=== PATIENT | female | born 1930 | race Caucasian/White ===

== ENCOUNTER 2018-07-19 06:33 | Day surgery (SDC) | payer OTHER, BC ==
[2018-07-18 18:24] VITALS: BMI 22.3
[2018-07-19] MEDS ORDERED: SODIUM CHLORIDE 0.9% P/F 10 ML VIAL IJ ONE (07:18)
[2018-07-19] MEDS ORDERED: ceFAZolin SODIUM 1 GM VIAL ONE (07:18)
[2018-07-19] MEDS ORDERED: ONDANSETRON 4 MG/2 ML VIAL ONE (07:18)
[2018-07-19] MEDS ORDERED: SUCCINYLCHOLINE CHLORIDE 200 MG/10 ML VIAL ONE (07:19)
[2018-07-19] MEDS ORDERED: PROPOFOL 20 ML ONE (07:19)
[2018-07-19] MEDS ORDERED: LIDOCAINE HCL/PF 2% SDV 5ML VIAL ONE (07:33)
[2018-07-19] MEDS ORDERED: BUPIVACAINE HCL/PF 0.5% (5MG/ML) 10 ML VIAL ONE (07:37)
[2018-07-19] MEDS ORDERED: LIDOCAINE HCL 1%, 10 MG/ML (20ML VIAL) ONE (07:38)
[2018-07-19] MEDS ORDERED: ceFAZolin SODIUM 1 GM VIAL IVPB ONE (08:29)
--- NOTE | 2018-07-19 08:30 | HP ---
[facility]ellite [facility] - Chief Complaint Chief Complaint: right hand pain, wrist , numbness, tingling History of Present Illness: right CTS, Dequervain's History Source: Patient Limitations to Obtaining History: No Limitations - Past Medical History Allergies/Adverse Reactions: Allergies Allergy/AdvReac Type Severity Reaction Status Date / Time verapamil HCl [From Calan] Allergy Intermediate Verified 07/19/18 07:21 - Current Medications Current Medications: Home Medications Medication Instructions Recorded Atorvastatin Calcium [Lipitor] 20 mg PO DAILY 03/10/12 Bisoprolol Fumarate/Hctz [Ziac 1 each PO DAILY 08/31/12 5-6.25 mg Tablet] Hydrocodone/Acetaminophen 1 - 2 tab PO TID PRN #20 tablet 07/19/18 [Hydrocodone-Acetamin 5-325 mg] [facility] 6 Satellite Physical Exam - Physical Examination Vital Signs: Vital Signs Period Temp Pulse Resp BP Sys/Jama Pulse Ox Last 24 Hr 98.0 F 62 20 180/74 100 General Appearance: Well Nourished ENT: Clear Lung: Clear to auscultation Heart: Regular rate & rhythm Breasts: Soft Abdomen: Soft Extremities: No edema Satellite Impression/Plan - Impression/Plan Impression: right CTS, Dequervain's Operative Procedure: right CTR, Dequervain's release Date to be Performed: 07/19/18
[2018-07-19] MEDS ORDERED: BUPIVACAINE HCL/PF 0.5% (5MG/ML) 10 ML VIAL IJ ONE (08:41)
[2018-07-19] MEDS ORDERED: LIDOCAINE HCL 1%, 10 MG/ML (50 mL VIAL) IJ ONE (08:41)
--- NOTE | 2018-07-19 09:28 | OP ---
Operative Note - Note: Operative Date: 07/19/18 Pre-Operative Diagnosis: right CTS, Dequervain's Operation: right Dequervain's release, CTR, tendon sheath excision, tenosynovectomy Post-Operative Diagnosis: Same as Pre-op Surgeon: Ricardo Webber Anesthesiologist/WELLNESS GUIDE: Dread Hammer Anesthesia: Local, MAC Specimens Removed: tenosynovium, tendon sheath Estimated Blood Loss (mls): 0 Drains, Volume Out (mls): 0 Blood Volume Replaced (mls): 0 Fluid Volume Replaced (mls): 500 Operative Report Dictated: Yes
[2018-07-19 11:26] VITALS: TEMP 98
--- NOTE | 2018-07-19 11:50 | SPEC ---
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 POSTOPERATIVE DIAGNOSIS: Right de Quervains and right carpal tunnel syndrome. PROCEDURE: Right de Quervains release and tendon sheath excision, right carpal tunnel release and tenosynovectomy. SURGEON: Marcelo Escalante M.D. ASSISTANTS: None. METAL MOLDER: Dread Hammer CRNA ANESTHESIA: MAC anesthesia with local injection of 15 mL of 0.5% Marcaine and 1% Lidocaine mix. DRAINS: None. COMPLICATIONS: None. SPECIMEN: Right wrist tendon sheath and tenosynovium. BLOOD LOSS: None. BLOOD GIVEN: None. FLUID REPLACEMENT: PlasmaLyte, 500 mL. INDICATIONS: This patient is an 88-year-old female with a preoperative diagnosis of severe right carpal tunnel syndrome and de Quervains tenosynovitis. After understanding the potential risks, complications, alternatives and benefits of surgery versus nonsurgical treatment, the patient elected to undergo this procedure. DESCRIPTION OF PROCEDURE: The patient was brought to the operating room, peripheral IV placed and intravenous sedation was given. One gram of intravenous Ancef was given. MAC anesthesia was induced. A tourniquet was applied to the right upper arm and the right upper extremity was prepped and draped in sterile fashion. The entire case was done under 3.8 loupe magnification. A marking pen was utilized to moises out a longitudinal incision in an already existing skin crease. Twenty mL of 0.5% Marcaine mixed with 1% Lidocaine was injected in and around the surgical incision. The right upper extremity was elevated, exsanguinated with an Esmarch bandage and the tourniquet inflated to 250 mmHg. A No. 15 scalpel blade was utilized to cut down through the skin. Subcutaneous hemostasis was achieved with the bipolar cautery. Dissection was done through the superficial palmar fascia. Self-retaining retractors were placed into the wound. Under direct visualization, the transverse carpal ligament was transected with a No. 15 scalpel blade, exposing the median nerve and the contents of the carpal tunnel. The distal and proximal extents of the release were completed with a Littler scissor and checked with irrigation and my small finger. They were seen to be complete. Limited dissection was done on the radial side of the median nerve and more extensive dissection was done on the ulnar side of the median nerve. The patients nerve was seen to be quite compressed by epineurium and therefore a limited epineurotomy was performed. A Ragnell retractor was used to gently retract the median nerve in a radial direction. The patient had a lot of tenosynovitis and therefore a tenosynovectomy was performed off all 9 flexor tendons. This was passed off the field as tenosynovium right wrist. The floor of the carpal tunnel was checked. There were no abnormal masses or ganglion cysts. The area was copiously irrigated and washed out and closure begun. Undyed 4-0 Vicryl was used to close the deep dermal layer. Final skin reapproximation was done with horizontal mattress 4-0 nylon sutures. The area was then washed and dried, covered with Xeroform, 4x4s, fluffs between the fingers, Webril and a 4-inch plaster roll was utilized to make a volar splint, which was then wrapped with Nate and Coban. For de Quervains release, the entire case was done under 3.8 loop magnification. The right upper extremity was prepped and draped in a sterile fashion. A longitudinal incision was marked out with a marking pen. A mix of 10 mL of 0.5% Marcaine, 1% Lidocaine were injected in and around the surgical area. The right upper extremity was then elevated, exsanguinated with an Esmarch bandage and the tourniquet inflated to 250 mmHg. A No. 15 scalpel blade was utilized to make a longitudinal incision. Subcutaneous hemostasis was achieved with a bipolar cautery. Dissection was done with a Littler scissors down to the first dorsal wrist compartment. Great care was taken to directly visualize and preserve all crossing sensory branches of the sensory nerve. Under direct visualization, the first dorsal wrist compartment was visualized and it was freed up from some adhesions with a [place] elevator. Next, a fresh No. 15 scalpel blade was utilized to open up the first dorsal wrist compartment, starting proximally and going distally both with the No. 15 scalpel blade and also with a Littler scissors. The anatomy was seen to have multiple slips of the abductor pollicis longus and the extensor pollicis brevis was in its own tendon tunnel. This was also released and the wall between the two excised. The roof of the tunnel was excised. This was all passed off the field as specimen. The volar lip of the first dorsal wrist compartment was preserved to prevent volar subluxation. The release was completed both distally and proximally in both compartments. I was able to bring out all slips through the wound with a Ragnell retractor and there were no obvious points of compression. The area was copiously irrigated and washed out, again explored and I didn't see any other abnormal tissue and therefore closure was begun. Undyed 4-0 Vicryl was used to close the deep dermal layer. Final skin reapproximation was done with a running subcuticular 4-0 Biosyn stitch. The area was then washed and dried, covered with Steri-Strips, 4 x 4's, fluffs between the fingers, Webril and Coban used to make a thumb spica Coban splint. The tourniquet was taken down after a total tourniquet time of 37 minutes. There were no complications during the case. The patient tolerated the procedure quite well and was brought to ambulatory recovery room in stable condition. MARCELO ESCALANTE M.D. [id number]
[2018-07-19] MEDS ORDERED: oxyCODONE HCL 5 MG TABLET PO PRN (14:46)
[2018-07-19] MEDS ORDERED: ONDANSETRON 4 MG/2 ML VIAL IVPUSH PRN (14:46)
[2018-07-19] MEDS ORDERED: LACTATED RINGERS SOLUTION 1,000 ML IV SCH (15:00)
[2018-07-19 15:02] VITALS: BP 160/80; PULSE 60
--- NOTE | 2018-07-21 13:43 | PATH ---
Surgical Pathology Report Patient Name: CRESENCIO CANALES [facility]. Rec. #: [id number] /Age/Gender: 1930 (Age: 88) / F Account: [id number] Location: [facility] SURGICAL Taken: 07/19/2018 Received: 07/19/2018 Reported: 07/21/2018 Physicians: Ricardo Webber M.D. Specimen(s) Received A: RIGHT HAND TENOSYNOVIUM B: TENDON SHEATH RIGHT WRIST Clinical History Right carpal tunnel Final Diagnosis A. RIGHT HAND TENOSYNOVIUM, EXCISION: TENOSYNOVIAL TISSUE WITH FIBROSIS AND DEGENERATIVE CHANGE. B. TENDON SHEATH RIGHT WRIST, EXCISION: FIBROCONNECTIVE TISSUE WITH FIBROSIS AND DEGENERATIVE CHANGE. Electronically Signed Sonia Portillo M.D. Gross Description A. Received in formalin labeled "right hand tenosynovium," is a 2.7 x 2.0 x 0.3 cm aggregate of mcconnell-yellow portions of soft tissue, consistent with tenosynovium. The specimen is submitted in toto in one cassette. B. Received in formalin labeled "tendon sheath excision right wrist," is a 1.5 x 0.8 x 0.2 cm aggregate of mcconnell-yellow portions of soft tissue, possibly consistent with tendon sheath. The specimen is submitted in toto in one cassette. /07/19/201807/19/2018
== END 2018-07-19 14:15 | disposition home or self-care (01) ==
LOC: JASU-SURG 06:33
PROVIDERS: ATTEND Orthopaedic Surgery
PROC: 0LB50ZZ Excision of Right Lower Arm and Wrist Tendon, Open Approach (ICD-10-PCS; 2018-07-19)
PROC: 0LN50ZZ Release Right Lower Arm and Wrist Tendon, Open Approach (ICD-10-PCS; principal; 2018-07-19 08:22)
PROC: 01N50ZZ Release Median Nerve, Open Approach (ICD-10-PCS; 2018-07-19 08:22)
DX: G56.01 Carpal tunnel syndrome, right upper limb (principal); M65.4 Radial styloid tenosynovitis [de Quervain]
CPT/HCPCS: 88304-TC; 94760

== ENCOUNTER 2018-10-22 12:06 | Inpatient (IN) | payer OTHER, BC ==
--- NOTE | 2018-10-22 12:27 | PDOC ---
History of Present Illness - General Chief Complaint: Pain Stated Complaint: ABD PAIN, BLOOD IN STOOL Time Seen by Provider: 10/22/18 12:12 History Source: Patient Exam Limitations: No Limitations - History of Present Illness Travel History: No Initial Comments: 10/22/18 12:43 88-year-old female history of hypertension, hyperlipidemia, arthritis prsents with abd pain and nausea. Pt nots abd pain is epigastric, has been going on for ~1-2 months, but has been more persistent recently. She went to Dr. Villanueva office last week- had some blood tests and stool guaiac - was found to be anemic and with guaiac + stool so was referred to dr. blum. pt was started on iron and protonix. Pt notes her stool is fairly well formed but black in color , denies any tarry stool. Pt does endorse feeling weaker than usual and occasional sob. pt also endorses feeling nauesus. pain is not canged with food intake. denies any cp, cogh PMD Past History - Past Medical History Allergies/Adverse Reactions: Allergies Allergy/AdvReac Type Severity Reaction Status Date / Time verapamil HCl [From Calan] Allergy Intermediate Verified 10/22/18 12:23 Home Medications: Ambulatory Orders Atorvastatin Calcium [Lipitor] 20 mg PO DAILY 03/10/12 Carbidopa/Levodopa 25/100 [Sinemet 25/100 -] 1 each PO DAILY 10/22/18 Ferrous Sulfate [Iron] 325 mg PO TID 10/22/18 Mirabegron [Myrbetriq] 25 mg PO DAILY 10/22/18 Nebivolol HCl [Bystolic] 10 mg PO DAILY 10/22/18 Pantoprazole Sodium [Protonix] 40 mg PO BID 10/22/18 Anemia: No Asthma: No Cancer: No Cardiac Disorders: No CVA: No COPD: No CHF: No Dementia: No Diabetes: No GI Disorders: No Disorders: No HTN: Yes Hypercholesterolemia: Yes Liver Disease: No Seizures: No Thyroid Disease: No - Surgical History Abdominal Surgery: No Appendectomy: No Cardiac Surgery: No Cholecystectomy: No Lung Surgery: No Neurologic Surgery: No Orthopedic Surgery: No - Suicide/Smoking/Psychosocial Hx Smoking Status: No Smoking History: Never smoked Number of Cigarettes Smoked Daily: 0 Hx Alcohol Use: No Drug/Substance Use Hx: No Substance Use Type: None Hx Substance Use Treatment: No Review of Systems - Review of Systems Able to Perform ROS?: Yes Comments:: 10/22/18 12:55 Constitutional - +generalized weakness no reported Fever, Chills, HEENT: no reported vision changes, sore throat Respiratory: no reported cough, sob, hemoptysis Cardiac: no reported chest pain, palpitations, light headedness, leg swelling Abd/GI: +abd pain, nausea, +dark stool no reported vomiting, blood per rectum, diarrhea : no reported dysuria, frequency, discharge Musculskelatal - no reported back pain, joint swelling skin - no reported bruising, erythema, rash neurological: no reported headache, numbness, focal weakness, tingling, ataxia, hematologic: no reported easy bruising, easy bleeding *Physical Exam - Physical Exam Comments: 10/22/18 12:56 GENERAL: The patient is awake, alert, and fully oriented, Nontoxic - in no acute distress. HEAD: Normocephalic, atraumatic. EYES: extraocular movements intact, sclera anicteric, conjunctiva clear. ENT: Normal voice, Moist mucous membranes. NECK: Normal range of motion, supple LUNGS: Breath sounds equal, clear to auscultation bilaterally. No wheezes, no rhonchi, no rales. HEART: Regular rate and rhythm, normal S1 and S2 without murmur, rub or gallop. ABDOMEN: Soft, mild epigastric tenderness no rebound/guarding, faint pulsations palpable EXTREMITIES: Normal range of motion, no edema. NEUROLOGICAL: No facial assymetry, Normal speech, PSYCH: Normal mood, normal affect. SKIN: Warm, Dry, normal turgor, 10/22/18 13:47 rectal: black stool, guaiac pending Heart Score/ECG Review - ECG Impressions Comment:: 10/22/18 15:33 Twelve-lead EKG was performed and reviewed by me. There is normal sinus rhythm with a normal rate. rate of 60 The axis is normal. The intervals are normal. There is normal R wave progression nonspecific ST wave changes ED Treatment Course - LABORATORY CBC & Chemistry Diagram: 10/22/18 13:00 10/22/18 13:00 Medical Decision Making - Medical Decision Making 10/22/18 12:57 diff dx - consider UGIB vs iron effect of black stool will obtain blood work, inlcuing t&s stool guaiac pending zofran for her nausea will discuss with dr. gibson regarding disposition 10/22/18 13:55 labs reviewed, noted mildly anemic, but stable from 5 days prior 10/22/18 14:07 stool guaaic neg pt with mild epigastrc ttp and ?pulsatile mass - will obtain abd US to r/o AAA 10/22/18 14:[address] Gibson notse pts hgb was 13.8 in 10/22/18 14:[address] ramirez will see the pt 10/22/18 14:38 Case discussed in detail with admitting physician including history, physical exam and ancillary studies. Admitting physician has assumed care for the patient, will follow all pending diagnostics and will complete the evaluation and treatment. 10/22/18 15:42 abd US neg for AAA *DC/Admit/Observation/Transfer Diagnosis at time of Disposition: Abdominal pain Qualifiers: Abdominal location: epigastric Qualified Code(s): R10.13 - Epigastric pain - Discharge Dispostion Condition at time of disposition: Stable Decision to Admit order: Yes - Referrals Referrals: Carlos Gibson MD [Primary Care Provider] - - Patient Instructions - Post Discharge Activity
[2018-10-22] MEDS ORDERED: ONDANSETRON 4 MG/2 ML VIAL IVPB ONE (12:45)
[2018-10-22] MEDS ORDERED: ONDANSETRON 4 MG/2 ML VIAL ONE (13:08)
[2018-10-22 13:22] LABS: BASO % 0.2 % (0-2.0); EOS % 1.4 % (0-4.5); HEMATOCRIT 28.9 % (32.4-45.2); HEMOGLOBIN 9.3 GM/dl (10.7-15.3); LYMPH % 8.7 % (8-40); MCH 29.3 pg (25.7-33.7); MCHC 32.2 g/dl (32.0-36.0); MEAN CELL VOLUME 90.9 fl (80-96); MEAN PLT VOLUME 7.3 fl (7.5-11.1); MONO % 5.6 % (3.8-10.2); NEUT % 84.1 % (42.8-82.8); PLATELET COUNT 390 K/MM3 (134-434); RBC 3.18 M/mm3 (3.60-5.2); RDW 13.6 % (11.6-15.6); WHITE BLOOD COUNT 11.3 K/mm3 (4.0-10.8)
[2018-10-22 13:30] LABS: ALBUMIN 3.4 g/dl (3.4-5.0); CREATININE 1.6 mg/dl (0.55-1.3); POTASSIUM 3.7 mmol/L (3.5-5.1); TOT PROT 6.2 g/dl (6.4-8.2)
[2018-10-22] MEDS: D5-1/2NS+20 MEQ KCL - 20 MEQ/1,000 ML INFUS.BAG IV SCH (19:00)
--- NOTE | 2018-10-22 20:30 | PN ---
Progress Note (short form) - Note Progress Note: Patient seen and consult dictated; patient is an 88 yo female admitted via ER with epigastric pain, recent black stools/melena and anemia. Had been on Mobic - recently discontinued. Labs with elevated BUN>creat and moderate anemia; guaiac + stool. Suspect UGI bleed due to Mobic-induced ulcer/peptic disease. Agree with PPI Rx, avoidance of Mobic, NSAIDS, ASA and monitoring of CBC/vital signs. Sonogram shows no evidence of AAA. Will arrange for EGD tomorrow (mid-day) Discussed with patient and family
[2018-10-22 20:37] VITALS: BMI 21.2
[2018-10-22] MEDS: PANTOPRAZOLE SODIUM 40 MG VIAL IVPUSH SCH (22:14)
[2018-10-22 23:23] LABS: EPITHELIAL CELLS RARE /hpf
--- NOTE | 2018-10-23 07:23 | PN ---
Progress Note, Physician - Current Medication List Current Medications: Active Medications Atorvastatin Calcium (Lipitor -) 20 mg PO HS [facility] Carbidopa/Levodopa (Sinemet 25/100 -) 1 each PO DAILY [facility] Potassium Chloride/Dextrose/Sod Cl (D5-1/2ns+20 Meq Kcl -) 20 meq in 1,000 mls @ 75 mls/hr IV ASDIR [facility] Last Admin: 10/22/18 19:00 Dose: 75 mls/hr Nebivolol (Bystolic -) 10 mg PO DAILY [facility] Non-Formulary Medication (Mirabegron [Myrbetriq]) 25 mg PO DAILY [facility] Pantoprazole Sodium (Protonix Iv) 40 mg IVPUSH BID [facility] Last Admin: 10/22/18 22:14 Dose: 40 mg - Objective Vital Signs: Vital Signs Temperature 97.9 F 10/23/18 06:00 Pulse Rate 60 10/23/18 06:00 Respiratory Rate 19 10/23/18 06:00 Blood Pressure 161/51 L 10/23/18 06:00 O2 Sat by Pulse Oximetry (%) 98 10/23/18 06:00
--- NOTE | 2018-10-23 07:46 | HP ---
Admitting History and Physical - Past Medical History Cardiovascular: Yes: HTN, Hyperlipdemia ...: No Musculoskeletal: Yes: Osteoarthritis - Smoking History Smoking history: Never smoked Aproximately how many cigarettes per day: 0 - Alcohol/Substance Use Hx Alcohol Use: No Home Medications - Allergies Allergies/Adverse Reactions: Allergies Allergy/AdvReac Type Severity Reaction Status Date / Time verapamil HCl [From Calan] Allergy Intermediate Verified 10/22/18 12:23 - Home Medications Home Medications: Ambulatory Orders Atorvastatin Calcium [Lipitor] 20 mg PO DAILY 03/10/12 Carbidopa/Levodopa 25/100 [Sinemet 25/100 -] 1 each PO DAILY 10/22/18 Ferrous Sulfate [Iron] 325 mg PO TID 10/22/18 Mirabegron [Myrbetriq] 25 mg PO DAILY 10/22/18 Nebivolol HCl [Bystolic] 10 mg PO DAILY 10/22/18 Pantoprazole Sodium [Protonix] 40 mg PO BID 10/22/18 Review of Systems - Review of Systems Cardiovascular: denies: Chest Pain Respiratory: denies: SOB Gastrointestinal: reports: Abdominal Pain, Melena Genitourinary: reports: No Symptoms Physical Examination Vital Signs: Vital Signs Temperature 97.9 F 10/23/18 06:00 Pulse Rate 60 10/23/18 06:00 Respiratory Rate 19 10/23/18 06:00 Blood Pressure 161/51 L 10/23/18 06:00 O2 Sat by Pulse Oximetry (%) 98 10/23/18 06:00 Cardiovascular: Yes: Regular Rate and Rhythm Respiratory: Yes: Regular, CTA Bilaterally Gastrointestinal: Yes: Normal Bowel Sounds, Soft. No: Tenderness Neurological: Yes: Alert, Oriented Problem List - Problems (1) GI bleed Assessment/Plan: MONITOR CBC GI CONSULT APPRECIATED PPI NPO FOR EGD Code(s): K92.2 - GASTROINTESTINAL HEMORRHAGE, UNSPECIFIED (2) Anemia Assessment/Plan: ABOVE Code(s): D64.9 - ANEMIA, UNSPECIFIED (3) HTN (hypertension) Assessment/Plan: MONITOR ON CURRENT MEDS Code(s): I10 - ESSENTIAL (PRIMARY) HYPERTENSION (4) Abdominal pain Assessment/Plan: PROBABLY DUE TO ABOVE US NO AAA Code(s): R10.9 - UNSPECIFIED ABDOMINAL PAIN Qualifiers: Abdominal location: epigastric Qualified Code(s): R10.13 - Epigastric pain
[2018-10-23 08:03] LABS: BASO % 0.3 % (0-2.0); EOS % 4.5 % (0-4.5); HEMATOCRIT 26.4 % (32.4-45.2); HEMOGLOBIN 8.4 GM/dl (10.7-15.3); LYMPH % 12.5 % (8-40); MCHC 31.9 g/dl (32.0-36.0); MEAN PLT VOLUME 7.7 fl (7.5-11.1); MONO % 8.2 % (3.8-10.2); NEUT % 74.5 % (42.8-82.8); PLATELET COUNT 350 K/MM3 (134-434); RDW 13.4 % (11.6-15.6); WHITE BLOOD COUNT 8.6 K/mm3 (4.0-10.8)
[2018-10-23 08:07] LABS: INR 1.21 (0.82-1.09); PROTHROMBIN TIME (PATIENT) 13.5 SEC (10.2-13.0)
[2018-10-23 08:08] LABS: ALBUMIN 2.6 g/dl (3.4-5.0); BILIRUBIN,TOTAL 0.8 mg/dl (0.2-1); CALCIUM 8.5 mg/dl (8.5-10); POTASSIUM 3.9 mmol/L (3.5-5.1); TOT PROT 4.9 g/dl (6.4-8.2)
--- NOTE | 2018-10-23 08:11 | CONS ---
DATE OF CONSULTATION: 10/22/2018 REFERRING PHYSICIAN: Carlos Loomis MD REASON FOR CONSULTATION: I was asked to evaluate this 88-year-old female admitted with painless recent melena, epigastric discomfort, and anemia. HISTORY OF PRESENT ILLNESS: The patient is an 88-year-old female with a history of hypertension, hyperlipidemia, and arthritis. She had been on Mobic for at least several months and has had some epigastric pain for at least a month. She also was noted to have dark stool, which was guaiac positive, and anemia on recent evaluation. She was seen by another patient financial advocate and started on Protonix and iron with the Mobic discontinued. Plans were for an outpatient upper endoscopy. However, the patient did feel somewhat weaker today, had some nausea with some epigastric discomfort, and presented to the emergency room at [facility]. Her other medications currently include Lipitor, Sinemet, iron, Myrbetriq, and Bystolic. She has no prior history of upper GI bleeding or ulcer disease and denies any history of anemia. Her blood tests in the emergency room included a BUN of 36 and a creatinine of 1.6 with normal liver chemistries and lipase. Her CBC included a white count of 11.3, hemoglobin 9.3, hematocrit 28.9, with an MCV of 90.9, and a platelet count of 390,000. PHYSICAL EXAMINATION: General: The patient is a well-developed, elderly female, alert and comfortable. HEENT: She has slightly pale conjunctiva, no icterus. Lungs: Clear. Cardiac: Regular rate and rhythm. Abdomen: Soft, flat, and there is no obvious tenderness, mass, or hepatosplenomegaly. As mentioned, the stool has been dark in color and guaiac positive. LABORATORY TESTS: Patient had a sonogram of the abdomen which did not show evidence of an aortic aneurysm. IMPRESSION: Patient with likely upper gastrointestinal bleed related to use of Mobic and likely due to underlying ulcer disease or gastritis. PLAN: I agree with discontinuation of Mobic, continuation of a proton pump inhibitor, and plans for an upper endoscopy tomorrow. Would monitor her CBC in the interim and allow clear liquids as tolerated. Will follow. ANTHONY POON M.D. [id number]
[2018-10-23] MEDS ORDERED: PATIENT'S OWN MEDICATION (NON-FORMULARY) (Mirabegron [Myrbetriq] 25 MG) PO SCH (10:00)
[2018-10-23] MEDS: NEBIVOLOL 10 MG TABLET (FP) PO SCH (10:41)
[2018-10-23] MEDS: CARBIDOPA/LEVODOPA 25/100 TABLET (FP) PO SCH (10:41)
[2018-10-23] MEDS: PANTOPRAZOLE SODIUM 40 MG VIAL IVPUSH SCH ×2 (10:42→21:46)
[2018-10-23] MEDS ORDERED: PROPOFOL 20 ML ONE ×2 (11:30→11:45)
--- NOTE | 2018-10-23 12:21 | PN ---
Progress Note (short form) - Note Progress Note: Upper endoscopy performed with report in chart. Findings notable for a moderate sized prepyloric ulcer and a small ulcer in the pyloric channel - neither bleeding. Bun/creat ratio improving and Hct 26-27% - stable Suspect no furtherbleeding but likely had bleeding from the prepyloric ulcer. Biopsies taken to r/o H pylori infection. Rec: slowly advance diet continue PPI avoid Mobic, NSAIDS, ASA monitor CBC Discharge plans per Dr. Loomis
--- NOTE | 2018-10-23 14:45 | EKG ---
Test Reason : Blood Pressure : / mmHG Vent. Rate : 060 BPM Atrial Rate : 060 BPM P-R Int : 198 ms QRS Dur : 078 ms QT Int : 444 ms P-R-T Axes : 012 -16 -22 degrees QTc Int : 444 ms NORMAL SINUS RHYTHM NONSPECIFIC ST AND T WAVE ABNORMALITY ABNORMAL ECG NO PREVIOUS ECGS AVAILABLE Confirmed by Ambrosio Vivas MD ([id number]) on 10/23/2018 2:44:39 PM Referred By: CARLIE MONTERO Confirmed By:Ambrosio Vivas MD
[2018-10-23] MEDS: D5-1/2NS+20 MEQ KCL - 20 MEQ/1,000 ML INFUS.BAG IV SCH (17:50)
[2018-10-23] MEDS ORDERED: ATORVASTATIN CA 20 MG TABLET (FP) PO SCH (22:00)
--- NOTE | 2018-10-24 07:09 | DS ---
Physical Examination Vital Signs: Vital Signs Temperature 97.9 F 10/24/18 04:37 Pulse Rate 63 10/24/18 04:37 Respiratory Rate 18 10/24/18 04:37 Blood Pressure 159/62 10/24/18 04:37 O2 Sat by Pulse Oximetry (%) 96 10/24/18 04:37 Cardiovascular: Yes: Regular Rate and Rhythm Respiratory: Yes: Regular, CTA Bilaterally Gastrointestinal: Yes: Normal Bowel Sounds, Soft Labs: CBC, BMP 10/23/18 06:57 10/23/18 06:57 Discharge Summary Reason For Visit: ABD PAIN, BLOOD IN STOOL Current Active Problems Abdominal pain (Acute) Anemia (Acute) GI bleed (Acute) HTN (hypertension) (Acute) Hospital Course: - Problems (1) GI bleed Assessment/Plan: MONITOR CBC GI CONSULT APPRECIATED PPI EGD endoscopy performed with report in chart. Findings notable for a moderate sized prepyloric ulcer and a small ulcer in the pyloric channel - neither bleeding. Code(s): K92.2 - GASTROINTESTINAL HEMORRHAGE, UNSPECIFIED (2) Anemia Assessment/Plan: STABLE ABOVE Code(s): D64.9 - ANEMIA, UNSPECIFIED (3) HTN (hypertension) Assessment/Plan: MONITOR ON CURRENT MEDS Code(s): I10 - ESSENTIAL (PRIMARY) HYPERTENSION (4) Abdominal pain Assessment/Plan: PROBABLY DUE TO ABOVE US NO AAA Code(s): R10.9 - UNSPECIFIED ABDOMINAL PAIN Qualifiers: Abdominal location: epigastric Qualified Code(s): R10.13 - Epigastric pain (5) Weakness Assessment/Plan: PT--consider snf Condition: Stable - Instructions Referrals: Carlos Loomis MD [Primary Care Provider] - [facility]position: [facility] - Home Medications Comprehensive Discharge Medication List: Ambulatory Orders Atorvastatin Calcium [Lipitor] 20 mg PO DAILY 03/10/12 Carbidopa/Levodopa 25/100 [Sinemet 25/100 -] 1 each PO DAILY 10/22/18 Ferrous Sulfate [Iron] 325 mg PO TID 10/22/18 Mirabegron [Myrbetriq] 25 mg PO DAILY 10/22/18 Nebivolol HCl [Bystolic] 10 mg PO DAILY 10/22/18 Pantoprazole Sodium [Protonix] 40 mg PO BID 10/22/18
[2018-10-24 08:21] LABS: CALCIUM 8.7 mg/dl (8.5-10); POTASSIUM 4.1 mmol/L (3.5-5.1)
[2018-10-24 08:22] LABS: BASO % 0.6 % (0-2.0); EOS % 4.6 % (0-4.5); HEMATOCRIT 29.3 % (32.4-45.2); HEMOGLOBIN 9.5 GM/dl (10.7-15.3); LYMPH % 14.6 % (8-40); MCH 29.5 pg (25.7-33.7); MCHC 32.3 g/dl (32.0-36.0); MEAN CELL VOLUME 91.3 fl (80-96); MEAN PLT VOLUME 7.7 fl (7.5-11.1); MONO % 6.7 % (3.8-10.2); NEUT % 73.5 % (42.8-82.8); PLATELET COUNT 336 K/MM3 (134-434); RBC 3.21 M/mm3 (3.60-5.2); RDW 13.4 % (11.6-15.6); WHITE BLOOD COUNT 7.7 K/mm3 (4.0-10.8)
--- NOTE | 2018-10-24 08:58 | PN ---
Progress Note (short form) - Note Progress Note: Patient eating well and has no epigastric pain, nausea; has some suprapubic discomfort which she believes is due to her bladder issues. VSS Afebile Hct 29% Abdomen soft +BS no epigastric discomfort minimal discomfort over bladder Stable from GI standpoint; no signs of further bleeding .On PPI and off Mobic Plans per Dr. Loomis. (Patient states she has f/u with Urologist.)
[2018-10-24] MEDS: CARBIDOPA/LEVODOPA 25/100 TABLET (FP) PO SCH (09:56)
[2018-10-24] MEDS: NEBIVOLOL 10 MG TABLET (FP) PO SCH (09:56)
[2018-10-24] MEDS ORDERED: PANTOPRAZOLE 40 MG TABLET (FP) PO SCH (10:00)
[2018-10-24 13:13] VITALS: BP 147/53; PULSE 60; TEMP 98.3
--- NOTE | 2018-10-25 14:34 | PATH ---
Surgical Pathology Report Patient Name: CRESENCIO CANALES [facility]. Rec. #: [id number] /Age/Gender: 1930 (Age: 88) / F Account: [id number] Location: PENDING SALE TO [facility] Taken: 10/23/2018 Received: 10/23/2018 Reported: 10/25/2018 Physicians: London Rosario M.D. Specimen(s) Received A: PRE-PYLORIC CHANNEL ULCER B: ANTRUM Clinical History GI bleed, anemia Postoperative diagnosis: Ulcer Final Diagnosis A. PRE-PYLORIC CHANNEL, ULCER, BIOPSY: MODERATE CHRONIC GASTRITIS WITH FEATURES OF REACTIVE GASTROPATHY. IMMUNOSTAIN IS NEGATIVE FOR H. PYLORI ORGANISMS. B. ANTRUM, BIOPSY: MILD CHRONIC GASTRITIS. IMMUNOSTAIN IS NEGATIVE FOR H. PYLORI ORGANISMS. Electronically Signed Angela Otoole M.D. Gross Description A. Received in formalin, labeled "prepyloric channel ulcer" are 4 mcconnell, irregular portions of soft tissue ranging from 0.1-0.3 cm. in greatest dimension. The specimens are submitted in toto in one cassette. B. Received in formalin, labeled "antrum" is a mcconnell, irregular portion of soft tissue measuring 0.7 cm. in greatest dimension. The specimen is submitted in toto in one cassette. 10/24/201810/24/2018
== END 2018-10-24 16:00 | disposition home or self-care (01) | DRG 379 ==
LOC: FER 12:06 → FM/S 14:34
PROVIDERS: ADMIT Family Medicine; ATTEND Family Medicine
PROC: 0DB78ZX Excision of Stomach, Pylorus, Via Natural or Artificial Opening Endoscopic, Diagnostic (ICD-10-PCS; 2018-10-23)
PROC: 0DB68ZX Excision of Stomach, Via Natural or Artificial Opening Endoscopic, Diagnostic (ICD-10-PCS; principal; 2018-10-23 12:05)
DX: K25.4 Chronic or unspecified gastric ulcer with hemorrhage (principal); I10 Essential (primary) hypertension; E78.5 Hyperlipidemia, unspecified; D64.9 Anemia, unspecified; T39.395A Adverse effect of other nonsteroidal anti-inflammatory drugs [NSAID], initial encounter
CPT/HCPCS: 36415; 71045-TC-FY; 76775-TC; 80048; 80053; 81003; 81015; 82272; 83690; 84443; 85025; 85610; 86850; 86900; 86901; 88305-TC; 88342-TC; 93005; 97116-GP; 97161-GP; 99283-25

== ENCOUNTER 2019-01-07 03:18 | Emergency (ER) | payer OTHER, BC ==
[2019-01-07 03:54] VITALS: BMI 22.3
--- NOTE | 2019-01-07 04:03 | PDOC ---
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 Patient reports that this morning was trying to go to the bathroom but found that every time she tried to get up, her back hurt too much on either side, R> L. Able to move and feel her legs down to her feet, but feels sharp pain in her lower back when she tries to move at hip. Denies worsening urinary incontinence or complete loss of bowel control. Denies previous history of lower back issues. Has known overflow incontinence issue evaluated by [facility], has had biospy done but does not know results, and was told she is not a surgery candidate for a sling. Recently admitted for an episode of gastritis, told not to take NSAIDs. Reports 9lb unintentional weight loss despite normal diet. Denies dizziness, chest pain, SOB, abd pain, C/D, N/V, changes to vision. Past History - Past Medical History Allergies/Adverse Reactions: Allergies Allergy/AdvReac Type Severity Reaction Status Date / Time verapamil HCl [From Calan] Allergy Intermediate Verified 01/07/19 04:10 Home Medications: Ambulatory Orders Atorvastatin Calcium [Lipitor] 20 mg PO DAILY 03/10/12 Carbidopa/Levodopa 25/100 [Sinemet 25/100 -] 1 each PO DAILY 10/22/18 Ferrous Sulfate [Iron] 325 mg PO TID 10/22/18 Mirabegron [Myrbetriq] 25 mg PO DAILY 10/22/18 Nebivolol HCl [Bystolic] 10 mg PO DAILY 10/22/18 Pantoprazole Sodium [Protonix] 40 mg PO BID 10/22/18 Lidocaine 5% Patch [Lidoderm -] 1 patch TP DAILY #7 patch 01/07/19 Anemia: Yes Asthma: No Cancer: No Cardiac Disorders: No CVA: No COPD: No CHF: No Dementia: No Diabetes: No GI Disorders: No Disorders: Yes (leakage) HTN: Yes Hypercholesterolemia: Yes Liver Disease: No Seizures: No Thyroid Disease: No - Surgical History Abdominal Surgery: No Appendectomy: No Cardiac Surgery: No Cholecystectomy: No Lung Surgery: No Neurologic Surgery: No Orthopedic Surgery: No - Psycho Social/Smoking Cessation Hx Smoking Status: No Smoking History: Never smoked Number of Cigarettes Smoked Daily: 0 Hx Alcohol Use: No Drug/Substance Use Hx: No Substance Use Type: None Hx Substance Use Treatment: No Review of Systems - Review of Systems Constitutional: Yes: Unintentional Wgt. Loss (9 lbs weight loss despite normal diet) HEENTM: No: Symptoms Reported Respiratory: No: Symptoms reported Cardiac (ROS): No: Symptoms Reported ABD/GI: No: Symptoms Reported : Yes: Incontinence. No: Burning, Dysuria, Discharge, Frequency, Flank Pain, Hematuria, Pain Musculoskeletal: Yes: Back Pain (lumbar) Integumentary: No: Symptoms Reported Neurological: No: Symptoms reported Endocrine: No: Symptoms Reported Hematologic/Lymphatic: No: Symptoms Reported All Other Systems: Reviewed and Negative *Physical Exam - Vital Signs Last Vital Signs Temp Pulse Resp BP Pulse Ox 97.9 F 65 17 178/75 H 99 01/07/19 03:35 01/07/19 03:35 01/07/19 03:35 01/07/19 03:35 01/07/19 03:35 - Physical Exam General Appearance: Yes: Nourished, Appropriately Dressed. No: Apparent Distress HEENT: positive: EOMI, MAURO, Normal ENT Inspection, Normal Voice, Symmetrical. negative: Scleral Icterus (R), Scleral Icterus (L) Neck: positive: Trachea midline, Normal Thyroid, Supple. negative: Tender, Lymphadenopathy (R), Lymphadenopathy (L) Respiratory/Chest: positive: Lungs Clear, Normal Breath Sounds. negative: Chest Tender, Respiratory Distress, Crackles, Rales, Rhonchi, Wheezing Cardiovascular: positive: Regular Rhythm, Regular Rate Vascular Pulses: Dorsalis-Pedis (R): 1+, Doralis-Pedis (L): 1+ Gastrointestinal/Abdominal: positive: Normal Bowel Sounds, Flat, Soft. negative : Tender, Organomegaly, Guarding, Rebound Musculoskeletal: positive: Normal Inspection, Other (bilateral lower back tenderness to light touch in lumbar paraspinal region, worsens with flexion at hip) Extremity: positive: Normal Capillary Refill, Normal Inspection. negative: Tender, Pedal Edema, Swelling, Calf Tenderness Integumentary: positive: Normal Color, Dry, Warm Neurologic: positive: Fully Oriented, Alert, Normal Mood/Affect, Normal Response , Other (Full sensation to LT both feet bilaterally, able to move leg spontaneously from hips to toes, no other notable neurological deficits, a/ox3 and speaking in clear sentences, able to accuately describe medical history.). 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 Patient presentation initially concerning for cauda equina syndrome given incontinence and back/leg pain, but incontinence is at baseline and patient is able to move both legs spontaneously. Back pain worsening with hip movement consistent with sciatica vs. lumbar spinal compression fracture w/ radiculopathy vs. lumbago vs. muscle strain. Given new onset extreme pain and patient age, will evaluate lumbar spine via CT scan non-con. Giving lido patches and 1 percocet for lower back pain, as well as robaxin. 01/07/19 06:30 CT scan results shows mild scoliotic deformity with R convexity, grade 2 anterolisthesis of L5 on S1. No acute fracture noted. Patient's pain likely 2/2 muscle strain/lumbago. Patient resting comfortably on lido patch. Giving lido patch outpatient. Given patient's incontinence, evaluating via UA for UTI and potential treatment. Will sign out to day team for dispo home with son when he returns this morning. 01/07/19 07:13 Signed out to day team Dr. Davis. Discharge - Discharge Information Problems reviewed: Yes Clinical Impression/Diagnosis: Overflow incontinence of urine Lower back pain Qualifiers: Chronicity: acute Back pain laterality: bilateral Sciatica presence: with sciatica Sciatica laterality: bilateral sciatica Qualified Code(s): M54.42 - Lumbago with sciatica, left side Condition: Stable - Additional Discharge Information Prescriptions: Lidocaine 5% Patch [Lidoderm -] 1 patch TP DAILY #7 patch - Follow up/Referral - Patient Discharge Instructions Patient Printed Discharge Instructions: Back Pain (Alternative Therapy), DI for Low Back Pain, DI for Urinary Incontinence Additional Instructions: Today you were evaluated for lower back pain. We were concerned about a fracture to your spine, so we got a CT scan that shows no fracture. Because you have good sensation and movement in your legs, just pain when moving, your pain is likely due to a strained muscle. We are treating it with lidocaine patches. Please see your primary doctor Dr. Loomis in the next 3 days for further evaluation. If you have worsening pain, inability to move or feel your legs, have complete loss of control of your bladder, or any other new or concerning symptoms, please return to the emergency room. - Post Discharge Activity
[2019-01-07] MEDS ORDERED: LIDOCAINE 5% TOPICAL PATCH TP ONE (04:05)
[2019-01-07] MEDS ORDERED: METHOCARBAMOL 500 MG TABLET PO ONE (04:06)
[2019-01-07] MEDS ORDERED: METHOCARBAMOL 500 MG TABLET ONE (04:13)
[2019-01-07] MEDS ORDERED: LIDOCAINE 5% TOPICAL PATCH ONE (04:14)
--- NOTE | 2019-01-07 04:32 | PDOC ---
Attending Attestation - Resident Resident Name: Vernon Mcconnell - ED Attending Attestation I have performed the following: I have examined & evaluated the patient, The case was reviewed & discussed with the resident, I agree w/resident's findings & plan - HPI HPI: 01/07/19 06:52 Pt comes with low back pain. Cant get off her bed; she didn't fall or injure self. She has no fever and no rash and she is eating and drinking and A+Ox3. Brought in by her son. - Physicial Exam PE: 01/07/19 06:53 Agree with resident exam. 01/07/19 06:53 Pt has a dustended bladder and we are sending [facility] cath urine specimen; CT Lspine is normal spine, but some spondylolistheses. - Medical Decision Making 01/07/19 06:08 Patient Name: CRESENCIO CANALES THIS IS A PRELIMINARY REPORT FROM [facility] DATE OF SERVICE: 2019-01-07 04:44:23 IMAGES: [id number] EXAM: LUMBAR SPINE CT W/O CONTRAST HISTORY: Low back pain COMPARISON: None. FINDINGS: Mild scoliotic deformity of the lumbar spine with the convexity to the right Grade 2 anterolisthesis of L5 on S1 that is secondary to bilateral pars defects at L5 No fractures Lumbar spondylosis Distended bladder IMPRESSION: 1. No acute lumbar spine injury 01/07/19 06:54 Pt is feeling vastly improved with analgesics and with lidoderm
[2019-01-07 07:11] VITALS: BP 163/60; PULSE 57; TEMP 97.4
--- NOTE | 2019-01-07 07:18 | PDOC ---
*Physical Exam - Vital Signs Last Vital Signs Temp Pulse Resp BP Pulse Ox 97.4 F L 57 L 16 163/60 100 01/07/19 07:10 01/07/19 07:10 01/07/19 07:10 01/07/19 07:10 01/07/19 07:10 ED Treatment Course - Medications Given in the ED: ED Medications Discontinued Medications Generic Name Dose Route Start Last Admin Trade Name Gonzalez PRN Reason Stop Dose Admin Lidocaine 1 patch 01/07/19 04:05 01/07/19 04:32 Lidoderm Patch - TP 01/07/19 04:06 1 patch ONCE ONE Administration Methocarbamol 1,000 mg 01/07/19 04:06 01/07/19 04:20 Robaxin - PO 01/07/19 04:07 1,000 mg ONCE ONE Administration Oxycodone/Acetaminophen 2 combo 01/07/19 04:06 01/07/19 04:20 Percocet 5/325 - PO 01/07/19 04:07 2 combo ONCE ONE Administration Medical Decision Making - Medical Decision Making 01/07/19 07:17 Signout from night team Arielle Maya is an 88F with PMH HTN, HLD, OA of the hands, and 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 Back pain worsening with hip movement consistent with sciatica vs. MSK strain. Fracture ruled out on lumbar CT. Given lido patch, 1 percocet, robaxin for pain. UA does not show UTI. D/c home w robaxin prescription and PCP f/u Discharge - Discharge Information Problems reviewed: Yes Clinical Impression/Diagnosis: Overflow incontinence of urine Lower back pain Qualifiers: Chronicity: acute Back pain laterality: bilateral Sciatica presence: with sciatica Sciatica laterality: bilateral sciatica Qualified Code(s): M54.42 - Lumbago with sciatica, left side Condition: Improved Disposition: HOME - Admission No - Additional Discharge Information Prescriptions: Methocarbamol [Robaxin -] 1,500 mg PO QID 2 Days #8 tablet - Follow up/Referral - Patient Discharge Instructions Patient Printed Discharge Instructions: Back Pain (Alternative Therapy), DI for Low Back Pain, DI for Urinary Incontinence Additional Instructions: Today you were evaluated for lower back pain. We were concerned about a fracture to your spine, so we got a CT scan that shows no fracture. Because you have good sensation and movement in your legs, just pain when moving, your pain is likely due to a strained muscle. We are treating it with lidocaine patches. You don't have a urinary infection Please see your primary doctor Dr. Loomis in the next 3 days for further evaluation. Take your prescribed robaxin as directed for pain. If you have worsening pain, inability to move or feel your legs, have complete loss of control of your bladder, or any other new or concerning symptoms, please return to the emergency room. - Post Discharge Activity
[2019-01-07 07:34] LABS: URINE APPEARANCE CLEAR; URINE BILIRUBIN NEGATIVE (NEGATIVE); URINE COLOR YELLOW; URINE GLUCOSE (UA) NEGATIVE (NEGATIVE); URINE KETONE NEGATIVE (NEGATIVE); URINE LEUK ESTERASE NEGATIVE (NEGATIVE); URINE NITRITE NEGATIVE (NEGATIVE); URINE PROTEIN NEGATIVE (NEGATIVE); URINE UROBILINOGEN 0.2 mg/dL (0.2-1.0)
[2019-01-07] MEDS ORDERED: LIDOCAINE PATCH REMOVAL MC SCH (22:00)
== END 2019-01-07 11:30 | disposition home or self-care (01) ==
LOC: JER 03:18
DX: M54.42 Lumbago with sciatica, left side (principal); N39.490 Overflow incontinence; I10 Essential (primary) hypertension; E78.5 Hyperlipidemia, unspecified; M19.042 Primary osteoarthritis, left hand; M19.041 Primary osteoarthritis, right hand
CPT/HCPCS: 72131-TC; 81003; 99284-25

== ENCOUNTER 2019-12-17 16:54 | Inpatient (IN) | payer OTHER, BC ==
--- NOTE | 2019-12-17 19:17 | PDOC ---
History of Present Illness - General Chief Complaint: Altered Mental Status Stated Complaint: SENT BY DR Moe Seen by Provider: 12/17/19 19:13 History Source: Patient, Care Provider (Son) - History of Present Illness Initial Comments: 12/17/19 19:15 HPI: This is an 89 y/o female with a PMH of parkinsons, HTN, HLD presenting to the ED today due to worsening chronic left lower leg weakness and hallucinations. Per the son who lives with her, she has had this left leg weakness for 4 months, but it has worsened over the past 4 days. She normally ambulates at home with a walker, however she has not been able to. She has also had visual and auditory hallucinations that started over the past 3 weeks. Per the son, he spoke with her PCP Dr. Loomis and was told to come to the ED today at 4:30 for a "battery of tests." According to the patient and son, none of her symptoms are acute, just worsening. She denies chest pain, SOB, headache, previous CVA or [place], or other focal neurological deficits. She sees Dr. Mac for neuro but hasn't been able to get in touch with him since the hallucinations because he has "been on vacation." PCP: Dr. Loomis Neuro: Dr. Mac ROS: GENERAL/CONSTITUTIONAL: No fever/chills. Yes chronic LLE qeakness CARDIOVASCULAR: No chest pain or shortness of breath. RESPIRATORY: No cough, wheezing GASTROINTESTINAL: No nausea, vomiting, diarrhea GENITOURINARY: Admits to mild dysuria. Denies frequency, or change in urination. Has urinary incontinence, uses a diaper at home. MUSCULOSKELETAL: Yes LLE pain and weakness NEUROLOGIC: No headache, loss of consciousness, Decreased strength in LLE ENDOCRINE: No increased thirst. No abnormal weight change. HEMATOLOGIC/LYMPHATIC: No anemia, easy bleeding ALLERGIC/IMMUNOLOGIC: No hives or skin allergy. PMH: Parkinsons, HTN, HLD Social Hx: Denied etoh and tobacco Meds: See nurse note Allergies: Verapamil PE: GENERAL: Awake, alert, and oriented x3. In no acute distress. She is conversational but hard of hearing. HEAD: No signs of trauma EYES: PERRLA, EOMI ENT: Nares patent, oropharynx clear without exudates. Moist mucosa NECK: Normal ROM, supple, no lymphadenopathy, JVD, or masses LUNGS: Breath sounds equal, clear to auscultation bilaterally. No wheezes, and no crackles HEART: Regular rate and rhythm, normal S1 and S2, no murmurs, rubs or gallops ABDOMEN: Soft, nontender, normoactive bowel sounds. No guarding, no rebound. No masses EXTREMITIES: Normal range of motion, no edema. No clubbing or cyanosis. No cords, erythema, or tenderness NEUROLOGICAL: Cranial nerves II through XII grossly intact. Normal speech. No focal neurological abnormalities. Strength and sensation intact bilaterally in upper extremities. Strength 4/5 in RLE and 3/5 in LLE. Sensation intact in lower extremities bilaterally. SKIN: Warm, Dry, normal turgor, no rashes or lesions noted. MDM: 12/17/19 22:31 his is an 89 y/o female with a PMH of parkinsons, HTN, HLD presenting to the ED today due to worsening chronic left lower leg weakness and hallucinations. - Patient is oriented. - Her problems appear to be chronic but worsening. - Hallucinations likely due to Parkinsons and meds - Will do basic labs, EKG, CT head 12/17/19 23:02 Pertinent labs: - Potassium 2.2 - Will replete with 40mg oral and 30 IV 12/17/19 23:33 - Signed out to Dr. Shea Past History - Medical History Allergies/Adverse Reactions: Allergies Allergy/AdvReac Type Severity Reaction Status Date / Time verapamil HCl [From Cal[place]a] Allergy Intermediate Verified 12/17/19 17:07 Home Medications: Ambulatory Orders Atorvastatin Calcium [Lipitor] 20 mg PO DAILY 03/10/12 Carbidopa/Levodopa 25/100 [Sinemet 25/100 -] 1 each PO DAILY 10/22/18 Ferrous Sulfate [Iron] 325 mg PO TID 10/22/18 Mirabegron [Myrbetriq] 25 mg PO DAILY 10/22/18 Nebivolol HCl [Bystolic] 10 mg PO DAILY 10/22/18 Pantoprazole Sodium [Protonix] 40 mg PO BID 10/22/18 Methocarbamol [Robaxin -] 1,500 mg PO QID 2 Days #8 tablet 01/07/19 Anemia: Yes Asthma: No Cancer: No Cardiac Disorders: No CVA: No COPD: No CHF: No Dementia: No Diabetes: No GI Disorders: No Disorders: Yes (leakage) HTN: Yes Hypercholesterolemia: Yes Liver Disease: No Seizures: No Thyroid Disease: No - Surgical History Abdominal Surgery: No Appendectomy: No Cardiac Surgery: No Cholecystectomy: No Lung Surgery: No Neurologic Surgery: No Orthopedic Surgery: No - Immunization History Immunization Up to Date: Yes - Psycho-Social/Smoking History Smoking Status: No Smoking History: Never smoked Number of Cigarettes Smoked Daily: 0 - Substance Abuse Hx (Audit-C & DAST Scrn) How often the patient has a drink containing alcohol: Never Score: In Men: 4 or > Positive; In Women: 3 or > Positive: 0 Screen Result (Pos requires Nsg. Audit-10AR): Negative In the last yr the pt used illegal drug/Rx for NonMed reason: No Score: Yes response is considered Positive: 0 Screen Result (Positive result requires Nsg. DAST-10): Negative *Physical Exam - Vital Signs Last Vital Signs Temp Pulse Resp BP Pulse Ox 98.4 F 75 20 156/57 L 100 12/17/19 17:08 12/17/19 17:08 12/17/19 17:08 12/17/19 17:08 12/17/19 17:08 Heart Score/ECG Review - ECG Intrepretation Comment:: 12/17/19 22:[address] elevations T wave inversions in V1, V2 present on EKG from 10/22/18 Possible junctional rhythm, quality of EKG decreased due to shaking. Vent rate 65bpm QRS 80ms QT/QTc 436/453 ED Treatment Course - LABORATORY CBC & Chemistry Diagram: 12/17/19 21:14 12/17/19 21:14 Discharge - Discharge Information Problems reviewed: Yes Clinical Impression/Diagnosis: Hypokalemia, Hypomagnesemia, Weakness UTI (urinary tract infection) Qualifiers: Urinary tract infection type: site unspecified Hematuria presence: without hem aturia Qualified Code(s): N39.0 - Urinary tract infection, site not specified Condition: Guarded - Follow up/Referral - Patient Discharge Instructions - Post Discharge Activity
--- NOTE | 2019-12-17 19:35 | PDOC ---
Documentation entered by Caio Rutledge SCRIBE, acting as scribe for Cassandra Tinoco MD. Cassandra Tinoco MD: This documentation has been prepared by the Devon lord Xhesika, SCRIBE, under my direction and personally reviewed by me in its entirety. I confirm that the documentation accurately reflects all work, treatment, procedures, and medical decision making performed by me. 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 Per son, the pt has been endorsing visual and auditory hallucinations. Son, states they spoke to Dr. Loomis last week who advised him to bring the pt to the ED but he did not. Son states he brought the pt in today to find out why the pt has been progressively weak. Allergies: Verapmil HCl PCP: Dr. Loomis - Physicial Exam PE: 12/17/19 19:28 89 yo female with PMH of Parkinson's disease and she has visual hallucinations for several weeks . She also has had increasing pain in her left knee over the past month and the son reports she can't ambulate due to her left knee pain. No h/o trauma. 12/17/19 21:53 12/17/19 22:54 wnwd 89 yo female with c/o increasing left knee soreness head ncat neck supple lungs cta b/l abdomen nontender extremities no deformities,no erythema ,soreness to left knee but no swelling neuro alert ,conversant - Medical Decision Making 12/17/19 21:30 Son Octaviano Maya [phone] 12/17/19 22:41 potassium=2.2 and she will receive supplemental potassium ct scan head pending UA 12/17/19 23:21 ct scan head : no bleed,no infarct,no mass negative troponin 12/18/19 01:16 The patient's nurse brought to my attention that this patient's potassium rider extravasated and and the heplock and IV were removed, a compress was placed on the area The was some mild swelling at the site. No erythema. An incident report was made. 12/18/19 01:47 12/18/19 01:48 UA ++ UTI, pt will receive antibiotics Discharge - Discharge Information Problems reviewed: Yes Clinical Impression/Diagnosis: UTI (urinary tract infection) Qualifiers: Urinary tract infection type: site unspecified Hematuria presence: without hematuria Qualified Code(s): N39.0 - Urinary tract infection, site not specified - Admission Yes - Follow up/Referral Referrals: Carlos Loomis MD [Primary Care Provider] - - Patient Discharge Instructions - Post Discharge Activity
[2019-12-17 21:23] LABS: BASO % 1.1 % (0-2.0); EOS % 0.9 % (0-4.5); HEMATOCRIT 37.5 % (32.4-45.2); HEMOGLOBIN 12.8 GM/dL (10.7-15.3); LYMPH % 20.8 % (8-40); MCH 31.3 pg (25.7-33.7); MCHC 34.2 g/dl (32.0-36.0); MEAN CELL VOLUME 91.7 fl (80-96); MEAN PLT VOLUME 8.7 fl (7.5-11.1); MONO % 7.7 % (3.8-10.2); NEUT % 69.5 % (42.8-82.8); PLATELET COUNT 232 K/MM3 (134-434); RBC 4.09 M/mm3 (3.60-5.2); RDW 14.6 % (11.6-15.6); WHITE BLOOD COUNT 8.2 K/mm3 (4.0-10.0)
[2019-12-17 21:57] LABS: ALBUMIN 3.7 g/dl (3.4-5.0); ALK PHOS 70 U/L (45-117); BILIRUBIN,TOTAL 1.4 mg/dL (0.2-1); BLOOD UREA NITROGEN 17.4 mg/dL (7-18); CALCIUM 7.3 mg/dL (8.5-10.1); CHLORIDE 105 mmol/L (98-107); CO2 29 mmol/L (21-32); CREATININE 0.9 mg/dL (0.55-1.3); GLUCOSE,RANDOM 85 mg/dL (74-106); SGOT/AST 20 U/L (15-37); SGPT/ALT 9 U/L (13-61); SODIUM 144 mmol/L (136-145); TOT PROT 6.5 g/dl (6.4-8.2)
[2019-12-17 22:19] LABS: ANION GAP 10 MMOL/L (8-16)
[2019-12-17 22:21] LABS: POTASSIUM 2.2 mmol/L (3.5-5.1)
[2019-12-17] MEDS ORDERED: POTASSIUM CHLORIDE TABS 20 MEQ TABLET.ER (FP) PO ONE (22:22)
[2019-12-17] MEDS ORDERED: POTASSIUM CHLORIDE ORAL LIQUID 20 MEQ/15 ML PO ONE (22:26)
[2019-12-17] MEDS ORDERED: KCL 10 MEQ IVPB 10 MEQ/100 ML INFUS.BAG IVPB SCH (22:30)
[2019-12-17] MEDS ORDERED: POTASSIUM CHLORIDE ORAL LIQUID 20 MEQ/15 ML ONE (23:16)
[2019-12-17] MEDS ORDERED: KCL 10 MEQ IVPB 10 MEQ/100 ML INFUS.BAG IVPB ONE (23:16)
[2019-12-17 23:21] LABS: MAGNESIUM 0.5 mg/dL (1.8-2.4)
[2019-12-18] MEDS ORDERED: MAGNESIUM SULF 50% (8.12 MEQ/2 ML-1 GM VIAL) IVPB ONE (01:01)
--- NOTE | 2019-12-18 01:01 | PDOC ---
*Physical Exam - Vital Signs Last Vital Signs Temp Pulse Resp BP Pulse Ox 98.4 F 75 20 156/57 L 100 12/17/19 17:08 12/17/19 17:08 12/17/19 17:08 12/17/19 17:08 12/17/19 17:08 ED Treatment Course - LABORATORY CBC & Chemistry Diagram: 12/17/19 21:14 12/17/19 21:14 - ADDITIONAL ORDERS Additional order review: Laboratory Results 12/17/19 21:14 Sodium 144 Potassium 2.2 L* Chloride 105 Carbon Dioxide 29 Anion Gap 10 BUN 17.4 Creatinine 0.9 Est GFR (CKD-EPI)AfAm 66.16 Est GFR (CKD-EPI)NonAf 57.09 Random Glucose 85 Calcium 7.3 L Magnesium 0.5 L Total Bilirubin 1.4 H AST 20 ALT 9 L Alkaline Phosphatase 70 Troponin I < 0.02 Total Protein 6.5 Albumin 3.7 12/17/19 21:14 RBC 4.09 MCV 91.7 MCHC 34.2 RDW 14.6 MPV 8.7 D Neutrophils % 69.5 Lymphocytes % 20.8 Monocytes % 7.7 Eosinophils % 0.9 Basophils % 1.1 - Medications Given in the ED: ED Medications Discontinued Medications Generic Name Dose Route Start Last Admin Trade Name Freq PRN Reason Stop Dose Admin Potassium Chloride 10 meq in 100 mls @ 100 mls/hr 12/17/19 22:30 12/17/19 23:57 Potassium Chloride 10 Meq Premix Ivpb - IVPB 12/17/19 23:29 100 mls/hr Q60M KOSTA Administration Potassium Chloride 40 meq 12/17/19 22:22 12/17/19 23:25 K-Dur - PO 12/17/19 22:23 Not Given ONCE ONE Potassium Chloride 40 meq 12/17/19 22:26 12/17/19 23:57 Potassium Chloride Oral Liquid PO 12/17/19 22:27 40 meq ONCE ONE Administration Medical Decision Making - Medical Decision Making 12/18/19 00:56 Sign-out received Parkinson disease with subacute worsening LLE weakness, visual hallucinations Per son, non-ambulatory at home Severe hypokalemia, no EKG changes UA pending Admit Med/Surg Son: Octaviano Maya [phone] 12/18/19 01:41 UTI, rocephin 12/18/19 02:16 Endorsed to inpatient team Discharge - Discharge Information Problems reviewed: Yes Clinical Impression/Diagnosis: Hypokalemia, Hypomagnesemia, Weakness UTI (urinary tract infection) Qualifiers: Urinary tract infection type: site unspecified Hematuria presence: without hematuria Qualified Code(s): N39.0 - Urinary tract infection, site not specified Condition: Guarded - Follow up/Referral Referrals: Carlos Loomis MD [Primary Care Provider] - - Patient Discharge Instructions - Post Discharge Activity
[2019-12-18 01:27] LABS: EPI CELLS 9 /uL (0-25.1); HYALINE CASTS 1 /uL (0-3.1); URINE APPEARANCE CLEAR; URINE BACTERIA >9,000 /uL (0-1359); URINE BILIRUBIN NEGATIVE (NEGATIVE); URINE COLOR YELLOW; URINE GLUCOSE (UA) NEGATIVE (NEGATIVE); URINE KETONE NEGATIVE (NEGATIVE); URINE LEUK ESTERASE TRACE (NEGATIVE); URINE NITRITE NEGATIVE (NEGATIVE); URINE PROTEIN NEGATIVE (NEGATIVE); URINE RBC 5 /uL (0-23.9); URINE UROBILINOGEN 0.2 mg/dL (0.2-1.0); URINE WBC 49 /uL (0-25.8)
[2019-12-18] MEDS ORDERED: CEFTRIAXONE 1 GM in DEXTROSE 5%-WATER - 100 ML IVPB ONE (01:47)
[2019-12-18] MEDS ORDERED: CEFTRIAXONE 1 GM/50 ML BAG ONE ×2 (01:49→11:06)
[2019-12-18] MEDS ORDERED: MAGNESIUM SULFATE IN WATER 2 GM/50 ML IVPB IVPB ONE (01:50)
--- NOTE | 2019-12-18 02:50 | PN ---
Teaching Attending Note Name of Resident: Kassandra Serra ATTENDING PHYSICIAN STATEMENT I saw and evaluated the patient. I reviewed the resident's note and discussed the case with the resident. I agree with the resident's findings and plan as documented. SUBJECTIVE: 89yoF with history of Parkinson disease, HTN, HLD, and overflow incontinence who presents with worsening lower extremity weakness and hallucinations. Hypertensive but afebrile and hemodynamically stable int he ED. Work up notable for potassium 2.2, magnesium 0.5. EKG with poor baseline but appears to show TWI in V1, V2 which were seen on prior EKG 2018. She received 2g magnesium and oral and IV potassium as well as ceftriaxone. At time of evaluation she is compli aning of suprapubic pain and dysuria. OBJECTIVE: Vital Signs - 24 hr 12/17/19 12/18/19 17:08 01:45 Temperature 98.4 F 98.3 F Pulse Rate 75 Pulse Rate [ 71 Left Radial] Respiratory 20 15 Rate Blood Pressure 156/57 L Blood Pressure 171/58 H [Right Arm] O2 Sat by Pulse 100 100 Oximetry (%) EXAM Gen: awake, alert, mildly anxious but in no acute distress HEENT: NC/AT CV: RRR, no MRG appreciated Resp: CTAB, unlabored Abd: Soft, mildly distended, mildly tender lower abdomen wtihout rebound/guarding Neuro: Strength 4-/5 all extremities, no tremor noted Psych: anxious, mildly confused Laboratory Results - last 24 hr 12/17/19 12/17/19 12/18/19 21:14 21:14 00:20 WBC 8.2 RBC 4.09 Hgb 12.8 Hct 37.5 D MCV 91.7 MCH 31.3 MCHC 34.2 RDW 14.6 Plt Count 232 D MPV 8.7 D Absolute Neuts (auto) 5.7 Neutrophils % 69.5 Lymphocytes % 20.8 Monocytes % 7.7 Eosinophils % 0.9 Basophils % 1.1 Nucleated RBC % 0 Sodium 144 Potassium 2.2 L* Chloride 105 Carbon Dioxide 29 Anion Gap 10 BUN 17.4 Creatinine 0.9 Est GFR (CKD-EPI)AfAm 66.16 Est GFR (CKD-EPI)NonAf 57.09 Random Glucose 85 Calcium 7.3 L Magnesium 0.5 L Total Bilirubin 1.4 H AST 20 ALT 9 L Alkaline Phosphatase 70 Troponin I < 0.02 Total Protein 6.5 Albumin 3.7 Urine Color Yellow Urine Appearance Clear Urine pH 7.0 Ur Specific [place] 1.012 Urine Protein Negative Urine Glucose (UA) Negative Urine Ketones Negative Urine Blood Negative Urine Nitrite Negative Urine Bilirubin Negative Urine Urobilinogen 0.2 Ur Leukocyte Esterase Trace Urine WBC (Auto) 49 Urine RBC (Auto) 5 Urine Casts (Auto) 1 U Epithel Cells (Auto) 9 Urine Bacteria (Auto) >9,000 ASSESSMENT AND PLAN: 89yoF with history of Parkinson disease, HTN, HLD, and overflow incontinence who presents with worsening lower extremity weakness and hallucinations found to have UTI, hypokalemia, and hypomagnesemia. UTI UA with trace leuk esterases, WBC, and significant bacteruria Suprapubic pain and dysuria - continue ceftriaxone - f/u urine culture Hypokalemia, hypomagnesemia Repleted in ED EKG with poor baseline but appears to show old TWI leads V1-V2 - rpt lytes, mag in AM - replete as needed Hallucinations, lower extremity weakness Possibly related to acute infection, metabolic derangement, or progression of Parkinson - Management as above - PT consult - avoid anticholinergics Parkinson: continue carbidopa/levodopa DVT ppx: Lovenox subq
[2019-12-18] MEDS ORDERED: ACETAMINOPHEN 1000 MG/100 ML VIAL (NON FORMULARY) IVPB ONE (04:04)
[2019-12-18] MEDS ORDERED: ACETAMINOPHEN INJECTION 100 ML IVPB ONE (04:08)
[2019-12-18] MEDS ORDERED: ACETAMINOPHEN 325 MG TABLET (FP) PO PRN (05:34)
--- NOTE | 2019-12-18 07:45 | HP ---
CHIEF COMPLAINT: I am in pain PCP: Dr. Loomis HISTORY OF PRESENT ILLNESS: 89yo F with PMHx of Parkinson's Disease, visual and auditory hallucinations, HTN, HLD who presented with pelvic pain and leg pain. Difficult to obtain clear history from patient but she said that the pain in her lower abdomen has been going on for about two weeks and got worse today, and that she has been feeling pains "all over". Per signout, patient was brought in by her son who felt overwhelmed by his mother's condition. ER course was notable for: (1) hypokalemia 2.2, hypocalcemia 7.3, hypomagnesemia 0.5 (2) UA showing trace leukocyte esterases, 49 WBC, >9000 bacteria (3) physical exam showing severed pelvic pain (4) EKG (poor quality): T wave inversions V1 V2 that were already present on 10/22/18 Recent Travel: none PAST MEDICAL HISTORY: as per HPI PAST SURGICAL HISTORY: "surgery for a bleeding ulcer" Family History: everyone of old age, son is healthy Social History: Smoking: denied Alcohol: denied Drugs: denied Home: lives at home with her son, is Allergies verapamil HCl [From [facility]] Allergy (Intermediate, Verified 12/17/19 17:07) red rash HOME MEDICATIONS: Home Medications Medication Instructions Recorded Atorvastatin Calcium [Lipitor] 20 mg PO DAILY 03/10/12 Carbidopa/Levodopa 25/100 [Sinemet 1 each PO DAILY 10/22/18 25/100 -] Ferrous Sulfate [Iron] 325 mg PO TID 10/22/18 Mirabegron [Myrbetriq] 25 mg PO DAILY 10/22/18 Nebivolol HCl [Bystolic] 10 mg PO DAILY 10/22/18 Pantoprazole Sodium [Protonix] 40 mg PO BID 10/22/18 Methocarbamol [Robaxin -] 1,500 mg PO QID 2 Days #8 tablet 01/07/19 REVIEW OF SYSTEMS as per HPI PHYSICAL EXAMINATION Vital Signs - 24 hr 12/17/19 12/18/19 12/18/19 17:08 01:45 06:09 Temperature 98.4 F 98.3 F 97.6 F Pulse Rate 75 Pulse Rate [ 71 72 Left Radial] Respiratory 20 15 20 Rate Blood Pressure 156/57 L Blood Pressure 171/58 H 154/86 [Right Arm] O2 Sat by Pulse 100 100 100 Oximetry (%) GENERAL: F, elderly, thin to mildly cachectic body habitus, alert, mildly disoriented, showing signs of acute distress due to pain HEAD: Normal with no signs of trauma EYES: PERRL, extraocular movements intact bilaterally LUNGS: CTAB HEART: RRR, normal S1 and S2 without murmur ABDOMEN: Soft, moderate tenderness on deep palpation, not distended not protuberant, active bowel sounds EXTREMITIES: 2+ radial and dorsalis pedis pulses, warm to touch bilaterally, nontender to palpation, no peripheral edema appreciated NEUROLOGICAL: Cranial nerves II-XII grossly intact. Normal speech with symmetricalfacial movements PSYCHIATRIC: Cooperative and interactive, responds appropriately. Good eye contact. "I'm in pain" mood and affect congruent with stated mood Laboratory Results - last 24 hr 12/17/19 12/17/19 12/18/19 21:14 21:14 00:20 WBC 8.2 RBC 4.09 Hgb 12.8 Hct 37.5 D MCV 91.7 MCH 31.3 MCHC 34.2 RDW 14.6 Plt Count 232 D MPV 8.7 D Absolute Neuts (auto) 5.7 Neutrophils % 69.5 Lymphocytes % 20.8 Monocytes % 7.7 Eosinophils % 0.9 Basophils % 1.1 Nucleated RBC % 0 Sodium 144 Potassium 2.2 L* Chloride 105 Carbon Dioxide 29 Anion Gap 10 BUN 17.4 Creatinine 0.9 Est GFR (CKD-EPI)AfAm 66.16 Est GFR (CKD-EPI)NonAf 57.09 Random Glucose 85 Calcium 7.3 L Magnesium 0.5 L Total Bilirubin 1.4 H AST 20 ALT 9 L Alkaline Phosphatase 70 Troponin I < 0.02 Total Protein 6.5 Albumin 3.7 Urine Color Yellow Urine Appearance Clear Urine pH 7.0 Ur Specific [place] 1.012 Urine Protein Negative Urine Glucose (UA) Negative Urine Ketones Negative Urine Blood Negative Urine Nitrite Negative Urine Bilirubin Negative Urine Urobilinogen 0.2 Ur Leukocyte Esterase Trace Urine WBC (Auto) 49 Urine RBC (Auto) 5 Urine Casts (Auto) 1 U Epithel Cells (Auto) 9 Urine Bacteria (Auto) >9,000 ASSESSMENT/PLAN: 89yo F with PMHx of Parkinson's Disease, visual and auditory hallucinations, HTN, HLD who presented with pelvic pain and leg pain. ED workup was remarkable for hypokalemia 2.2, hypocalcemia 7.3, hypomagnesemia 0.5, UA showing trace leukocyte esterases, 49 WBC, >9000 bacteria, and physical exam showing severed pelvic pain. Patient was admitted for treatment of acute complicated UTI and electrolyte imbalance. #acute complicated UTI - start ceftriaxone - IV tylenol and morphine 1mg PRN for pain control - if patient does not urinate in 6-8h can do bladder scan #electrolyte imbalance - replete Mg before repleting K - ordered phos with am labs - may consider avoiding PPI as superintendent terminal use (>1year) could cause hypomagnesemia #visual and auditory hallucinations: 2/2 to acute infectious encephalitis vs parkinson's disease progression - continue monitoring MS and hallucinatory symptoms #HTN/HLD - restart home meds #FEN - no standing fluids replete lytes PRN #PPX - DVT: lovenox #Dispo: medSurg Family Medical History Family History: As Documented Visit type - Medication Review Med list reviewed for High Risk Meds patients 65 and older: No - Emergency Visit Emergency Visit: Yes ED Registration Date: 12/18/19 Care time: The patient presented to the Emergency Department on the above date and was hospitalized for further evaluation of their emergent condition. - New Patient This patient is new to me today: Yes Date on this admission: 12/18/19 - Critical Care Critical Care patient: No ATTENDING PHYSICIAN STATEMENT I saw and evaluated the patient. I reviewed the resident's note and discussed the case with the resident. I agree with the resident's findings and plan as documented. SUBJECTIVE: OBJECTIVE: ASSESSMENT AND PLAN:
--- NOTE | 2019-12-18 08:52 | PN ---
Progress Note, Physician History of Present Illness: 89yo F with PMHx of Parkinson's Disease, visual and auditory hallucinations, HTN, HLD who presented with pelvic pain and leg pain. ED workup was remarkable for hypokalemia 2.2, hypocalcemia 7.3, hypomagnesemia 0.5, UA showing trace leukocyte esterases, 49 WBC, >9000 bacteria, and physical exam showing severed pelvic pain. Patient was admitted for treatment of acute complicated UTI and electrolyte imbalance. - Current Medication List Current Medications: Active Medications Acetaminophen (Tylenol -) 650 mg PO Q6H PRN PRN Reason: PAIN LEVEL 7 - 10 Enoxaparin Sodium (Lovenox -) 40 mg SQ DAILY [facility] Ceftriaxone Sodium 1 gm/ (Dextrose) 50 mls @ 100 mls/hr IVPB DAILY [facility] - Objective Vital Signs: Vital Signs Temperature 97.6 F 12/18/19 06:09 Pulse Rate 72 12/18/19 06:09 Respiratory Rate 20 12/18/19 06:09 Blood Pressure 154/86 12/18/19 06:09 O2 Sat by Pulse Oximetry (%) 100 12/18/19 06:09 Cardiovascular: Yes: S1, S2 Respiratory: Yes: Regular, CTA Bilaterally Gastrointestinal: Yes: Normal Bowel Sounds, Soft Neurological: Yes: Alert, Confusion Labs: CBC, BMP 12/17/19 21:14 12/17/19 21:14 Problem List - Problems (1) Hallucination Assessment/Plan: 2/2 to acute infectious -Neuro consult CT head noted Code(s): R44.3 - HALLUCINATIONS, UNSPECIFIED (2) Hypokalemia Assessment/Plan: - replete Mg before repleting K - ordered phos with am labs Code(s): E87.6 - HYPOKALEMIA (3) UTI (urinary tract infection) Assessment/Plan: - start ceftriaxone - IV tylenol and morphine 1mg PRN for pain control - if patient does not urinate in 6-8h can do bladder scan Code(s): N39.0 - URINARY TRACT INFECTION, SITE NOT SPECIFIED Qualifiers: Urinary tract infection type: site unspecified Hematuria presence: without hematuria Qualified Code(s): N39.0 - Urinary tract infection, site not specified (4) Weakness Code(s): R53.1 - WEAKNESS
[2019-12-18] MEDS: ENOXAPARIN NA (PORCINE) 40 MG/0.4 ML DISP.SYRIN SQ SCH (10:00)
[2019-12-18] MEDS: CEFTRIAXONE 1 GM in DEXTROSE 5%-WATER - 50 ML IVPB SCH (10:00)
[2019-12-18] MEDS ORDERED: ENOXAPARIN NA (PORCINE) 40 MG/0.4 ML DISP.SYRIN SQ ONE (11:05)
[2019-12-18 11:33] LABS: HEMATOCRIT 40.6 % (32.4-45.2); MCH 31.9 pg (25.7-33.7); MCHC 34.4 g/dl (32.0-36.0); MEAN CELL VOLUME 92.5 fl (80-96); MEAN PLT VOLUME 8.5 fl (7.5-11.1); PLATELET COUNT 228 K/MM3 (134-434); RBC 4.39 M/mm3 (3.60-5.2); RDW 14.2 % (11.6-15.6); WHITE BLOOD COUNT 9.3 K/mm3 (4.0-10.0)
[2019-12-18 13:16] LABS: BILIRUBIN,DIRECT 0.4 mg/dL (0.0-0.2); BILIRUBIN,TOTAL 1.7 mg/dL (0.2-1); BLOOD UREA NITROGEN 14.5 mg/dL (7-18); CALCIUM 7.6 mg/dL (8.5-10.1); CREATININE 0.9 mg/dL (0.55-1.3); MAGNESIUM 1.5 mg/dL (1.8-2.4); PHOSPHOROUS 3.2 mg/dL (2.5-4.9)
--- NOTE | 2019-12-18 13:29 | EKG ---
Test Reason : Blood Pressure : / mmHG Vent. Rate : 065 BPM Atrial Rate : 067 BPM P-R Int : 000 ms QRS Dur : 080 ms QT Int : 436 ms P-R-T Axes : 000 -17 -17 degrees QTc Int : 453 ms POOR DATA QUALITY, INTERPRETATION MAY BE ADVERSELY AFFECTED SINUS RHYTHM POSSIBLE ANTERIOR INFARCT , AGE UNDETERMINED ABNORMAL ECG Confirmed by MD SHELBY, HALI ([id number]) on 12/18/2019 1:28:30 PM Referred By: Confirmed By:HALI RYAN MD
[2019-12-18 13:37] LABS: POTASSIUM 2.3 mmol/L (3.5-5.1)
[2019-12-18 16:32] LABS: BLOOD UREA NITROGEN 13.1 mg/dL (7-18); CALCIUM 7.3 mg/dL (8.5-10.1)
[2019-12-18 17:05] LABS: POTASSIUM 2.4 mmol/L (3.5-5.1)
[2019-12-18] MEDS ORDERED: POTASSIUM CHLORIDE TABS 20 MEQ TABLET.ER (FP) PO ONE (18:13)
[2019-12-18 18:43] VITALS: BMI 22.6
[2019-12-18] MEDS: KCL 10 MEQ IVPB 10 MEQ/100 ML INFUS.BAG IVPB SCH ×3 (20:15→22:45)
[2019-12-19] MEDS ORDERED: KCL 10 MEQ IVPB 10 MEQ/100 ML INFUS.BAG IVPB SCH (02:15)
[2019-12-19 08:12] LABS: ALBUMIN 3.2 g/dl (3.4-5.0); BILIRUBIN,TOTAL 1.7 mg/dL (0.2-1); BLOOD UREA NITROGEN 12.2 mg/dL (7-18); CALCIUM 7.3 mg/dL (8.5-10.1); CREATININE 0.8 mg/dL (0.55-1.3); POTASSIUM 3.1 mmol/L (3.5-5.1); TOT PROT 5.9 g/dl (6.4-8.2)
[2019-12-19 08:15] LABS: BASO % 0.5 % (0-2.0); EOS % 0.8 % (0-4.5); HEMATOCRIT 38.2 % (32.4-45.2); HEMOGLOBIN 12.8 GM/dL (10.7-15.3); LYMPH % 14.1 % (8-40); MCH 31.1 pg (25.7-33.7); MCHC 33.6 g/dl (32.0-36.0); MEAN CELL VOLUME 92.4 fl (80-96); MEAN PLT VOLUME 8.5 fl (7.5-11.1); MONO % 8.5 % (3.8-10.2); NEUT % 76.1 % (42.8-82.8); PLATELET COUNT 244 K/MM3 (134-434); RBC 4.13 M/mm3 (3.60-5.2); RDW 14.5 % (11.6-15.6); WHITE BLOOD COUNT 8.6 K/mm3 (4.0-10.0)
[2019-12-19] MEDS ORDERED: POTASSIUM CHLORIDE TABS 10 MEQ TABLET.ER (FP) PO ONE (08:36)
--- NOTE | 2019-12-19 08:38 | PN ---
Progress Note, Physician - Current Medication List Current Medications: Active Medications Acetaminophen (Tylenol -) 650 mg PO Q6H PRN PRN Reason: PAIN LEVEL 7 - 10 Enoxaparin Sodium (Lovenox -) 40 mg SQ DAILY [facility] Last Admin: 12/18/19 10:00 Dose: 40 mg Documented by: Ceftriaxone Sodium 1 gm/ (Dextrose) 50 mls @ 100 mls/hr IVPB DAILY [facility] Last Admin: 12/18/19 10:00 Dose: 100 mls/hr Documented by: - Objective Vital Signs: Vital Signs Temperature 98.4 F 12/19/19 06:00 Pulse Rate 72 12/19/19 06:00 Respiratory Rate 18 12/19/19 06:00 Blood Pressure 148/67 12/19/19 06:00 O2 Sat by Pulse Oximetry (%) 99 12/19/19 06:00 Cardiovascular: Yes: S1, S2 Respiratory: Yes: Regular, CTA Bilaterally Gastrointestinal: Yes: Normal Bowel Sounds, Soft Labs: CBC, BMP 12/19/19 07:15 12/19/19 07:15 Problem List - Problems (1) Hallucination Assessment/Plan: 2/2 to acute infectious -Neuro consult CT head noted - Code(s): R44.3 - HALLUCINATIONS, UNSPECIFIED (2) Hypokalemia Assessment/Plan: - Replace and monitor - Renal consult Code(s): E87.6 - HYPOKALEMIA (3) UTI (urinary tract infection) Assessment/Plan: - start ceftriaxone - IV tylenol and morphine 1mg PRN for pain control - if patient does not urinate in 6-8h can do bladder scan Code(s): N39.0 - URINARY TRACT INFECTION, SITE NOT SPECIFIED Qualifiers: Urinary tract infection type: site unspecified Hematuria presence: without hematuria Qualified Code(s): N39.0 - Urinary tract infection, site not specif ied (4) Weakness Assessment/Plan: PT Code(s): R53.1 - WEAKNESS
[2019-12-19 09:12] LABS: MAGNESIUM 1.2 mg/dL (1.8-2.4)
[2019-12-19] MEDS ORDERED: QUEtiapine FUMARATE 25 MG TABLET PO SCH (10:00)
[2019-12-19] MEDS ORDERED: DEXTROSE 5%-WATER - 50 ML IVPB ONE (10:31)
[2019-12-19] MEDS ORDERED: cefTRIAXone SODIUM 1 GM VIAL ONE (10:31)
[2019-12-19] MEDS: CEFTRIAXONE 1 GM in DEXTROSE 5%-WATER - 50 ML IVPB SCH (10:33)
[2019-12-19] MEDS: ENOXAPARIN NA (PORCINE) 40 MG/0.4 ML DISP.SYRIN SQ SCH (10:34)
[2019-12-19] MEDS ORDERED: CALCIUM GLUCONATE 10% - 1,000 MG/10 ML VIAL IVPB ONE (11:39)
[2019-12-19] MEDS: MAGNESIUM SULF 50% (8.12 MEQ/2 ML-1 GM VIAL) IVPB SCH ×2 (13:00→13:48)
--- NOTE | 2019-12-19 13:03 | CON.NEP ---
Consult Consult Specialty:: Nephrology Referred by:: Dr. Loomis Reason for Consultation:: Persistant hypokalemia - History of Present Illness Chief Complaint: pelvis and leg pain History of Present Illness: This is a 89 year old woman with history of parkinson's disease, hypertension and hyperlipidemia who presented to the ED with pelvic and leg pain and found to have cystitis with hypokalemia and hypomagnesemia. Seen and examined at the bedside. She denies any sob, cp, fever, chills, N/V. She does report occasional diarrhea at home. She denies any muscle weakness and palpitations. No diarrhea reported per community health nursing director. - History Source History Provided By: Patient Limitations to Obtaining History: No Limitations - Past Medical History Cardio/Vascular: Yes: HTN, Hyperlipdemia ...: No Musculoskeletal: Yes: Osteoarthritis - Alcohol/Substance Use Hx Alcohol Use: No - Smoking History Smoking history: Never smoked Aproximately how many cigarettes per day: 0 Home Medications - Allergies Allergies/Adverse Reactions: Allergies Allergy/AdvReac Type Severity Reaction Status Date / Time verapamil HCl [From [facility]] Allergy Intermediate Verified 12/17/19 17:07 - Home Medications Home Medications: Ambulatory Orders Atorvastatin Calcium [Lipitor] 20 mg PO DAILY 03/10/12 Carbidopa/Levodopa 25/100 [Sinemet 25/100 -] 1 each PO DAILY 10/22/18 Ferrous Sulfate [Iron] 325 mg PO TID 10/22/18 Mirabegron [Myrbetriq] 25 mg PO DAILY 10/22/18 Nebivolol HCl [Bystolic] 10 mg PO DAILY 10/22/18 Pantoprazole Sodium [Protonix] 40 mg PO BID 10/22/18 Methocarbamol [Robaxin -] 1,500 mg PO QID 2 Days #8 tablet 01/07/19 Family Medical History Family History: Unable to Obtain Review of Systems - Review of Systems Constitutional: reports: No Symptoms Eyes: reports: No Symptoms HENT: reports: No Symptoms Neck: reports: No Symptoms Cardiovascular: reports: No Symptoms Respiratory: reports: No Symptoms Gastrointestinal: reports: No Symptoms Genitourinary: reports: No Symptoms Musculoskeletal: reports: Extremity Pain, Joint Swelling Endocrine: reports: No Symptoms Hematology/Lymphatic: reports: No Symptoms Psychiatric: reports: No Symptoms Nephrology Consult - Height Height: 5 ft 4 in - Weight Weight: 59.874 kg - BMI Body Mass Index (BMI): 22.6 - Lab Results CBC,BMP: CBC, BMP 12/19/19 07:15 12/19/19 07:15 Anion Gap: Anion Gap Anion Gap 10 MMOL/L (8-16) 12/19/19 07:15 - Physical Examination Vital Signs: Vital Signs Temperature 98.2 F 12/19/19 10:00 Pulse Rate 78 12/19/19 10:00 Respiratory Rate 20 12/19/19 10:00 Blood Pressure 136/85 12/19/19 10:00 O2 Sat by Pulse Oximetry (%) 99 12/19/19 10:00 Constitutional: Yes: Well Nourished, No Distress, Calm Eyes: Yes: Conjunctiva Clear HENT: Yes: Atraumatic Neck: Yes: Supple Cardiovascular: Yes: Regular Rate and Rhythm. No: Tachycardia, Murmur Respiratory: Yes: Regular, CTA Bilaterally. No: Rales, Rhonchi Gastrointestinal: Yes: Soft. No: Tenderness Extremities: No: Cold, Cool, Cyanosis Edema: No Neurological: Yes: Alert Assessment/Plan 89 year old woman with history of parkinson's disease, hypertension and hyperlipidemia who presented to the ED with pelvic and leg pain and found to have cystitis with hypokalemia and hypomagnesemia. 1. Persistent hypokalemia in setting of hypomagnesemia and possible diarrhea 2. Hypomagnsesemia in setting of chronic PPI use 3. Cystitis 4. Parkinson's disease 5. Hypertension Will replete Mg by giving total of 4g of IV Magnesium sulfate today. Start oral Slo-mg daily as well s/p 40meq of orally KCl this am, can continue oral supplementation as needed if K is > 3, IV if < 3. Repeat BMP this evening. Continue antibiotics for cystitis. Check stool cultures if pt has any diarrhea Thank you, will follow Nicholas Thomas DO
[2019-12-19] MEDS ORDERED: PT OWN MED DRAWER 7, Y5N ONE ×2 (13:14→21:07)
[2019-12-19] MEDS: CALCIUM CARBONATE 650 MG TABLET PO SCH ×2 (14:06→21:10)
--- NOTE | 2019-12-19 21:23 | CONSULT ---
Consult - text type - Consultation Consultation Note: NEUROLOGY CONSULTATION is greatly appreciated: Events reviewed, patient examined. This 89 yo RH woman, living with her son, Octaviano, is well-known to me for Rx of Parkinson's disease, B/L Carpal Tunnel Syndrome and depression. PMH sig for: HTN, DM, Chol, GERD and anemia- s/p recent GI bleed. Meds (when last seen on 10/17/19): Bystolic, HCTZ, Metformin, atorvastatin, pantoprazole and FeSO4. At that visit (first in > 1 year after missing F/U 01/03/19) she had run out of L-Dopa and had cogwheeling and a flexed, festinating, unsteady gait. L-Dopa (CR 25/100 TID) was resumed and PD was improved when seen on 10/24 when EMG confirmed mod. B/L CTS's. At that visit she remained withdrawn and depressed but had no hallucinations. Bupropion XL 150 mg was started for the depression. Now admitted after few weeks of hallucinations ("seeing dogs and people who are not there, like a dream") and progressive gait deterioration. CT of head (reviewed): Moderately severe, diffuse atrophy with microvascular changes. No acute pathology. Lytes: Mg++=0.5 mg% -> 1.2; K+= 2.2 mg% -> 3.1; Ca++ 7.3 mg% -> 7.3. B12= 410 pg%. TSH= 1.49. Now off L- Dopa. Urine WBC=49. On ceftriaxone SHUBHAM: Neck supple. + Nguyen. No bruits. s/p Right CT release NEURO: Awake, confused but O x [facility], Dec, 2000. Trump. Poor reversals. + Glabella, snout No tremor. Mod cogwheeling. Normal strength. Normal reflexes. Toes downgoing. No FTN dystaxia Decreased pinprick both median distributions. Gait deferred. 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 SUGGEST: Observe off L-Dopa for now (resume CR 25/100 TID @ 7, 12, and 5 when encephalopathy improves) Continue correction of Mg++; Ca++; and K+. Observe off HCTZ Continue antibiotics. Mobilize Pt. OO Bed to chair and ambulate with PT Increase Quetiapine to 12.5 q AM and 25 q HS (may need Pimavanserin as out pt). Thank you very much, Geremias Mac MD
[2019-12-19] MEDS: QUEtiapine FUMARATE 25 MG TABLET PO SCH (23:08)
[2019-12-20 08:02] LABS: BLOOD UREA NITROGEN 9.4 mg/dL (7-18); CALCIUM 8.4 mg/dL (8.5-10.1); CREATININE 0.7 mg/dL (0.55-1.3); MAGNESIUM 2.5 mg/dL (1.8-2.4); POTASSIUM 3.4 mmol/L (3.5-5.1)
[2019-12-20 08:03] LABS: BASO % 0.7 % (0-2.0); EOS % 2.3 % (0-4.5); HEMATOCRIT 37.7 % (32.4-45.2); HEMOGLOBIN 12.7 GM/dL (10.7-15.3); LYMPH % 13.6 % (8-40); MCH 31.1 pg (25.7-33.7); MCHC 33.6 g/dl (32.0-36.0); MEAN CELL VOLUME 92.4 fl (80-96); MEAN PLT VOLUME 8.3 fl (7.5-11.1); MONO % 7.3 % (3.8-10.2); NEUT % 76.1 % (42.8-82.8); PLATELET COUNT 229 K/MM3 (134-434); RBC 4.07 M/mm3 (3.60-5.2); RDW 14.1 % (11.6-15.6); WHITE BLOOD COUNT 8.9 K/mm3 (4.0-10.0)
--- NOTE | 2019-12-20 08:49 | PN ---
Progress Note, Physician - Current Medication List Current Medications: Active Medications Acetaminophen (Tylenol -) 650 mg PO Q6H PRN PRN Reason: PAIN LEVEL 7 - 10 Calcium Carbonate (Calcium Carbonate -) 650 mg PO BID [facility] Last Admin: 12/19/19 21:10 Dose: 650 mg Documented by: Enoxaparin Sodium (Lovenox -) 40 mg SQ DAILY [facility] Last Admin: 12/19/19 10:34 Dose: 40 mg Documented by: Ceftriaxone Sodium 1 gm/ (Dextrose) 50 mls @ 100 mls/hr IVPB DAILY [facility] Last Admin: 12/19/19 10:33 Dose: 100 mls/hr Documented by: Quetiapine Fumarate (Seroquel -) 25 mg PO BID [facility] Last Admin: 12/19/19 23:08 Dose: 25 mg Documented by: - Objective Vital Signs: Vital Signs Temperature 98.2 F 12/20/19 07:00 Pulse Rate 67 12/20/19 07:00 Respiratory Rate 18 12/20/19 07:00 Blood Pressure 158/82 12/20/19 07:00 O2 Sat by Pulse Oximetry (%) 97 12/20/19 07:00 Cardiovascular: Yes: Regular Rate and Rhythm Respiratory: Yes: Regular, CTA Bilaterally Gastrointestinal: Yes: Normal Bowel Sounds, Soft Neurological: Yes: Alert, Confusion Labs: CBC, BMP 12/20/19 06:50 12/20/19 06:50 Problem List - Problems (1) Hallucination Assessment/Plan: 2/2 to acute infectious -Neuro consult appreciated -CT head noted - Code(s): R44.3 - HALLUCINATIONS, UNSPECIFIED (2) Hypokalemia Assessment/Plan: - Replace and monitor - Renal consult 12/20/19 06:50 Potassium 3.4 L Chloride 111 H Calcium 8.4 L Magnesium 2.5 H Code(s): E87.6 - HYPOKALEMIA (3) UTI (urinary tract infection) Assessment/Plan: - on ceftriaxone Microbiology 12/18/19 00:20 Urine - Urine Clean Catch Urine Culture - Final Klebsiella Pneumoniae Code(s): N39.0 - URINARY TRACT INFECTION, SITE NOT SPECIFIED Qualifiers: Urinary tract infection type: site unspecified Hematuria presence: without hematuria Qualified Code(s): N39.0 - Urinary tract infection, site not specified (4) Weakness Assessment/Plan: PT Code(s): R53.1 - WEAKNESS
[2019-12-20] MEDS ORDERED: DEXTROSE 5%-WATER - 50 ML IVPB ONE (08:55)
[2019-12-20] MEDS ORDERED: cefTRIAXone SODIUM 1 GM VIAL ONE (08:55)
[2019-12-20] MEDS: QUEtiapine FUMARATE 25 MG TABLET PO SCH ×2 (09:01→21:13)
[2019-12-20] MEDS: CEFTRIAXONE 1 GM in DEXTROSE 5%-WATER - 50 ML IVPB SCH (09:01)
[2019-12-20] MEDS: ENOXAPARIN NA (PORCINE) 40 MG/0.4 ML DISP.SYRIN SQ SCH (09:01)
[2019-12-20] MEDS: CALCIUM CARBONATE 650 MG TABLET PO SCH ×2 (09:02→21:13)
[2019-12-20] MEDS ORDERED: PT OWN MED DRAWER 7, Y5N ONE ×2 (09:21→20:50)
[2019-12-20] MEDS ORDERED: MAGNESIUM CL 64 MG TABLET.SA PO SCH (13:00)
--- NOTE | 2019-12-20 13:49 | PN ---
Progress Note, Physician History of Present Illness: Seen and examined at the bedside has no acute complaints denies any sob, cp, fever, chills or abdominal pain making urine. - Current Medication List Current Medications: Active Medications Acetaminophen (Tylenol -) 650 mg PO Q6H PRN PRN Reason: PAIN LEVEL 7 - 10 Calcium Carbonate (Calcium Carbonate -) 650 mg PO BID [facility] Last Admin: 12/20/19 09:02 Dose: 650 mg Documented by: Enoxaparin Sodium (Lovenox -) 40 mg SQ DAILY [facility] Last Admin: 12/20/19 09:01 Dose: 40 mg Documented by: Ceftriaxone Sodium 1 gm/ (Dextrose) 50 mls @ 100 mls/hr IVPB DAILY [facility] Last Admin: 12/20/19 09:01 Dose: 100 mls/hr Documented by: Magnesium Chloride (Slow-Mag -) 64 mg PO DAILY [facility] Potassium Chloride (K-Dur -) 40 meq PO DAILY [facility] Quetiapine Fumarate (Seroquel -) 25 mg PO BID [facility] Last Admin: 12/20/19 09:01 Dose: 25 mg Documented by: - Objective Vital Signs: Vital Signs Temperature 97.2 F L 12/20/19 09:42 Pulse Rate 71 12/20/19 09:42 Respiratory Rate 18 12/20/19 09:42 Blood Pressure 147/50 L 12/20/19 09:42 O2 Sat by Pulse Oximetry (%) 95 12/20/19 09:42 Constitutional: Yes: No Distress, Calm, Thin HENT: Yes: Atraumatic Neck: Yes: Supple Cardiovascular: Yes: Regular Rate and Rhythm Respiratory: Yes: Regular, CTA Bilaterally Gastrointestinal: Yes: Soft Extremities: No: Cyanosis Edema: No Labs: CBC, BMP 12/20/19 06:50 12/20/19 06:50 Assessment/Plan 89 year old woman with history of parkinson's disease, hypertension and hyperlipidemia who presented to the ED with pelvic and leg pain and found to have cystitis with hypokalemia and hypomagnesemia. 1. Persistent hypokalemia in setting of hypomagnesemia and possible diarrhea 2. Hypomagnsesemia in setting of chronic PPI use 3. Cystitis 4. Parkinson's disease 5. Hypertension Potassium is improved, continue oral KCL 40meq daily Continue Slo-mg daily as well Trend electrolytes daily Continue antibiotics for cystitis. Check stool cultures if pt has any diarrhea Will follow up as needed. Nicholas Thomas DO
[2019-12-20] MEDS: MAGNESIUM CL 64 MG TABLET.SA PO SCH (14:22)
[2019-12-20] MEDS: POTASSIUM CHLORIDE TABS 20 MEQ TABLET.ER (FP) PO SCH (14:22)
[2019-12-21] MEDS ORDERED: DEXTROSE 5%-WATER - 50 ML IVPB ONE (09:07)
[2019-12-21] MEDS ORDERED: cefTRIAXone SODIUM 1 GM VIAL ONE (09:07)
[2019-12-21] MEDS ORDERED: PT OWN MED DRAWER 7, Y5N ONE ×2 (09:07→20:53)
[2019-12-21] MEDS: QUEtiapine FUMARATE 25 MG TABLET PO SCH ×2 (09:14→21:28)
[2019-12-21] MEDS: POTASSIUM CHLORIDE TABS 20 MEQ TABLET.ER (FP) PO SCH (09:14)
[2019-12-21] MEDS: ENOXAPARIN NA (PORCINE) 40 MG/0.4 ML DISP.SYRIN SQ SCH (09:14)
[2019-12-21] MEDS: MAGNESIUM CL 64 MG TABLET.SA PO SCH (09:14)
[2019-12-21] MEDS: CALCIUM CARBONATE 650 MG TABLET PO SCH ×2 (09:14→21:28)
[2019-12-21] MEDS: CEFTRIAXONE 1 GM in DEXTROSE 5%-WATER - 50 ML IVPB SCH (09:14)
[2019-12-21 09:37] LABS: BLOOD UREA NITROGEN 10.7 mg/dL (7-18); CALCIUM 8.6 mg/dL (8.5-10.1); CREATININE 0.7 mg/dL (0.55-1.3); MAGNESIUM 1.9 mg/dL (1.8-2.4); POTASSIUM 4.2 mmol/L (3.5-5.1)
--- NOTE | 2019-12-21 10:25 | PN ---
Progress Note, Physician Chief Complaint: UTI Hypokalemia AMS History of Present Illness: 89yo F with PMHx of Parkinson's Disease, visual and auditory hallucinations, HTN, HLD who presented with pelvic pain and leg pain. Difficult to obtain clear history from patient but she said that the pain in her lower abdomen has been going on for about two weeks and got worse today, and that she has been feeling pains "all over". Per signout, patient was brought in by her son who felt overwhelmed by his mother's condition. NAD Awake and alert, oriented x 3 - Current Medication List Current Medications: Active Medications Acetaminophen (Tylenol -) 650 mg PO Q6H PRN PRN Reason: PAIN LEVEL 7 - 10 Calcium Carbonate (Calcium Carbonate -) 650 mg PO BID [facility] Last Admin: 12/21/19 09:14 Dose: 650 mg Documented by: Enoxaparin Sodium (Lovenox -) 40 mg SQ DAILY [facility] Last Admin: 12/21/19 09:14 Dose: 40 mg Documented by: Ceftriaxone Sodium 1 gm/ (Dextrose) 50 mls @ 100 mls/hr IVPB DAILY [facility] Last Admin: 12/21/19 09:14 Dose: 100 mls/hr Documented by: Magnesium Chloride (Slow-Mag -) 64 mg PO DAILY [facility] Last Admin: 12/21/19 09:14 Dose: 64 mg Documented by: Potassium Chloride (K-Dur -) 40 meq PO DAILY [facility] Last Admin: 12/21/19 09:14 Dose: 40 meq Documented by: Quetiapine Fumarate (Seroquel -) 25 mg PO BID [facility] Last Admin: 12/21/19 09:14 Dose: 25 mg Documented by: - Objective Vital Signs: Vital Signs Temperature 97.2 F L 12/20/19 22:07 Pulse Rate 87 12/21/19 06:00 Respiratory Rate 18 12/20/19 22:07 Blood Pressure 137/87 12/21/19 06:00 O2 Sat by Pulse Oximetry (%) 98 12/20/19 22:07 Constitutional: Yes: Well Nourished, No Distress, Calm Cardiovascular: Yes: Regular Rate and Rhythm Respiratory: Yes: Regular, CTA Bilaterally Gastrointestinal: Yes: Normal Bowel Sounds, Soft Genitourinary: Yes: Nguyen Present Musculoskeletal: Yes: Muscle Weakness Extremities: Yes: WNL Edema: No Peripheral Pulses WNL: Yes Neurological: Yes: Alert, Oriented Psychiatric: Yes: Alert, Oriented Labs: CBC, BMP 12/20/19 06:50 12/21/19 08:32 Problem List - Problems (1) Acute metabolic encephalopathy Problems reviewed: Yes Code(s): G93.41 - METABOLIC ENCEPHALOPATHY (2) Hypokalemia Assessment/Plan: -resolved -seen by nephrology Problems reviewed: Yes Code(s): E87.6 - HYPOKALEMIA (3) Hypomagnesemia Problems reviewed: Yes Code(s): E83.42 - HYPOMAGNESEMIA (4) UTI (urinary tract infection) Assessment/Plan: -UC: Microbiology 12/18/19 00:20 Urine - Urine Clean Catch Urine Culture - Final Klebsiella Pneumoniae -IV abx -ID consult -Afebrile Problems reviewed: Yes Code(s): N39.0 - URINARY TRACT INFECTION, SITE NOT SPECIFIED Qualifiers: Urinary tract infection type: site unspecified Hematuria presence: without hematuria Qualified Code(s): N39.0 - Urinary tract infection, site not specified (5) Weakness Assessment/Plan: -Physical therapy -Evaluation for SNF Problems reviewed: Yes Code(s): R53.1 - WEAKNESS (6) Abdominal pain Assessment/Plan: -resolved -likely 2/2 to UTI Problems reviewed: Yes Code(s): R10.9 - UNSPECIFIED ABDOMINAL PAIN Qualifiers: Abdominal location: epigastric Qualified Code(s): R10.13 - Epigastric pain (7) AMS (altered mental status) Assessment/Plan: -2/2 to acute infections -CT of head (reviewed): Moderately severe, diffuse atrophy with microvascular changes. No acute pathology -Seen by neurology Problems reviewed: Yes Code(s): R41.82 - ALTERED MENTAL STATUS, UNSPECIFIED Assessment/Plan See problem list Spoke to niru Brumfield.
--- NOTE | 2019-12-21 14:17 | PN ---
Progress Note, Physician History of Present Illness: Pt seen and examined. She is awake and alert. She denies shortness of breath. - Current Medication List Current Medications: Active Medications Acetaminophen (Tylenol -) 650 mg PO Q6H PRN PRN Reason: PAIN LEVEL 7 - 10 Calcium Carbonate (Calcium Carbonate -) 650 mg PO BID [facility] Last Admin: 12/21/19 09:14 Dose: 650 mg Documented by: Enoxaparin Sodium (Lovenox -) 40 mg SQ DAILY [facility] Last Admin: 12/21/19 09:14 Dose: 40 mg Documented by: Ceftriaxone Sodium 1 gm/ (Dextrose) 50 mls @ 100 mls/hr IVPB DAILY [facility] Last Admin: 12/21/19 09:14 Dose: 100 mls/hr Documented by: Magnesium Chloride (Slow-Mag -) 64 mg PO DAILY [facility] Last Admin: 12/21/19 09:14 Dose: 64 mg Documented by: Potassium Chloride (K-Dur -) 40 meq PO DAILY [facility] Last Admin: 12/21/19 09:14 Dose: 40 meq Documented by: Quetiapine Fumarate (Seroquel -) 25 mg PO BID [facility] Last Admin: 12/21/19 09:14 Dose: 25 mg Documented by: - Objective Vital Signs: Vital Signs Temperature 97.2 F L 12/20/19 22:07 Pulse Rate 87 12/21/19 06:00 Respiratory Rate 18 12/20/19 22:07 Blood Pressure 137/87 12/21/19 06:00 O2 Sat by Pulse Oximetry (%) 98 12/20/19 22:07 Constitutional: Yes: Calm Eyes: Yes: Conjunctiva Clear HENT: Yes: Atraumatic Cardiovascular: Yes: S1, S2 Gastrointestinal: Yes: Soft Genitourinary: Yes: WNL Musculoskeletal: Yes: WNL Edema: No Neurological: Yes: Oriented Psychiatric: Yes: Oriented Labs: CBC, BMP 12/20/19 06:50 12/21/19 08:32 Assessment/Plan Current Medications Generic Name Dose Route Start Last Admin Trade Name Freq PRN Reason Stop Dose Admin Acetaminophen 650 mg 12/18/19 05:34 Tylenol - PO Q6H PRN PAIN LEVEL 7 - 10 Calcium Carbonate 650 mg 12/19/19 11:45 12/21/19 09:14 Calcium Carbonate - PO 650 mg BID [facility] Administration Enoxaparin Sodium 40 mg 12/18/19 10:00 09/12/20 09:14 Lovenox - SQ 40 mg DAILY [facility] Administration Ceftriaxone Sodium 1 gm/ 50 mls @ 100 mls/hr 12/18/19 10:00 12/21/19 09:14 Dextrose IVPB 100 mls/hr DAILY [facility] Administration Magnesium Chloride 64 mg 12/20/19 13:30 12/21/19 09:14 Slow-Mag - PO 64 mg DAILY [facility] Administration Potassium Chloride 40 meq 12/20/19 13:00 12/21/19 09:14 K-Dur - PO 40 meq DAILY [facility] Administration Quetiapine Fumarate 25 mg 12/19/19 22:00 12/21/19 09:14 Seroquel - PO 25 mg BID [facility] Administration coverage for Dr Thomas 1. Persistent hypokalemia in setting of hypomagnesemia and possible diarrhea 2. Hypomagnesemia in setting of chronic PPI use 3. Cystitis 4. Parkinson's disease 5. Hypertension Plan - potassium improved - mag improved - diarrhea workup - monitor lytes
[2019-12-22 10:04] LABS: POTASSIUM 4.5 mmol/L (3.5-5.1)
[2019-12-22 10:14] LABS: ALBUMIN 3.1 g/dl (3.4-5.0); BILIRUBIN,TOTAL 1.6 mg/dL (0.2-1); BLOOD UREA NITROGEN 11.6 mg/dL (7-18); CALCIUM 9.7 mg/dL (8.5-10.1); CREATININE 0.9 mg/dL (0.55-1.3)
[2019-12-22] MEDS ORDERED: cefTRIAXone SODIUM 1 GM VIAL ONE (10:18)
[2019-12-22] MEDS ORDERED: DEXTROSE 5%-WATER - 50 ML IVPB ONE (10:18)
[2019-12-22] MEDS: ENOXAPARIN NA (PORCINE) 40 MG/0.4 ML DISP.SYRIN SQ SCH (10:22)
[2019-12-22] MEDS: MAGNESIUM CL 64 MG TABLET.SA PO SCH (10:22)
[2019-12-22] MEDS: CALCIUM CARBONATE 650 MG TABLET PO SCH ×2 (10:23→21:11)
[2019-12-22] MEDS: CEFTRIAXONE 1 GM in DEXTROSE 5%-WATER - 50 ML IVPB SCH (10:23)
[2019-12-22] MEDS: TAMSULOSIN HCL 0.4 MG CAP PO SCH (10:23)
[2019-12-22] MEDS: POTASSIUM CHLORIDE TABS 20 MEQ TABLET.ER (FP) PO SCH (10:23)
[2019-12-22] MEDS: QUEtiapine FUMARATE 25 MG TABLET PO SCH ×2 (10:24→21:11)
--- NOTE | 2019-12-22 10:39 | PN ---
Progress Note, Physician Chief Complaint: UTI Hypokalemia AMS History of Present Illness: 89yo F with PMHx of Parkinson's Disease, visual and auditory hallucinations, HTN, HLD who presented with pelvic pain and leg pain. Difficult to obtain clear history from patient but she said that the pain in her lower abdomen has been going on for about two weeks and got worse today, and that she has been feeling pains "all over". Per signout, patient was brought in by her son who felt overwhelmed by his mother's condition. NAD Awake and alert, oriented x 3 Tyson re-inserted for urinary retention - Current Medication List Current Medications: Active Medications Acetaminophen (Tylenol -) 650 mg PO Q6H PRN PRN Reason: PAIN LEVEL 7 - 10 Calcium Carbonate (Calcium Carbonate -) 650 mg PO BID [facility] Last Admin: 12/22/19 10:23 Dose: 650 mg Documented by: Enoxaparin Sodium (Lovenox -) 40 mg SQ DAILY [facility] Last Admin: 12/22/19 10:22 Dose: 40 mg Documented by: Ceftriaxone Sodium 1 gm/ (Dextrose) 50 mls @ 100 mls/hr IVPB DAILY [facility] Last Admin: 12/22/19 10:23 Dose: 100 mls/hr Documented by: Magnesium Chloride (Slow-Mag -) 64 mg PO DAILY [facility] Last Admin: 12/22/19 10:22 Dose: 64 mg Documented by: Potassium Chloride (K-Dur -) 40 meq PO DAILY [facility] Last Admin: 12/22/19 10:23 Dose: 40 meq Documented by: Quetiapine Fumarate (Seroquel -) 25 mg PO BID [facility] Last Admin: 12/22/19 10:24 Dose: 25 mg Documented by: Tamsulosin HCl (Flomax -) 0.4 mg PO DAILY@0830 [facility] Last Admin: 12/22/19 10:23 Dose: 0.4 mg Documented by: - Objective Vital Signs: Vital Signs Temperature 98.4 F 12/22/19 06:45 Pulse Rate 67 12/22/19 06:45 Respiratory Rate 18 12/22/19 06:45 Blood Pressure 154/77 12/22/19 06:45 O2 Sat by Pulse Oximetry (%) 97 12/22/19 06:45 Constitutional: Yes: Well Nourished, No Distress, Calm Cardiovascular: Yes: Regular Rate and Rhythm Respiratory: Yes: Regular, CTA Bilaterally Gastrointestinal: Yes: Normal Bowel Sounds, Soft Genitourinary: Yes: Tyson Present Musculoskeletal: Yes: Muscle Weakness Extremities: Yes: WNL Edema: No Peripheral Pulses WNL: Yes Neurological: Yes: Alert, Oriented Psychiatric: Yes: Alert, Oriented Labs: CBC, BMP 12/20/19 06:50 12/22/19 08:22 Problem List - Problems (1) Acute metabolic encephalopathy Problems reviewed: Yes Code(s): G93.41 - METABOLIC ENCEPHALOPATHY (2) Hypokalemia Assessment/Plan: -resolved -seen by nephrology Problems reviewed: Yes Code(s): E87.6 - HYPOKALEMIA (3) Hypomagnesemia Problems reviewed: Yes Code(s): E83.42 - HYPOMAGNESEMIA (4) UTI (urinary tract infection) Assessment/Plan: -UC: Microbiology 12/18/19 00:20 Urine - Urine Clean Catch Urine Culture - Final Klebsiella Pneumoniae -IV abx -ID consult -Afebrile Problems reviewed: Yes Code(s): N39.0 - URINARY TRACT INFECTION, SITE NOT SPECIFIED Qualifiers: Urinary tract infection type: site unspecified Hematuria presence: without hematuria Qualified Code(s): N39.0 - Urinary tract infection, site not spe cified (5) Weakness Assessment/Plan: -Physical therapy -Evaluation for SNF Problems reviewed: Yes Code(s): R53.1 - WEAKNESS (6) Abdominal pain Assessment/Plan: -resolved -likely 2/2 to UTI Problems reviewed: Yes Code(s): R10.9 - UNSPECIFIED ABDOMINAL PAIN Qualifiers: Abdominal location: epigastric Qualified Code(s): R10.13 - Epigastric pain (7) AMS (altered mental status) Assessment/Plan: -2/2 to acute infections -CT of head (reviewed): Moderately severe, diffuse atrophy with microvascular changes. No acute pathology -Seen by neurology Problems reviewed: Yes Code(s): R41.82 - ALTERED MENTAL STATUS, UNSPECIFIED (8) Urinary retention Assessment/Plan: -Maintain tyson -Start Tamsulosin 0.4 mg po daily -Voiding trial at SNF Problems reviewed: Yes Code(s): R33.9 - RETENTION OF URINE, UNSPECIFIED Assessment/Plan See problem list -If ID agrees, d/c pt to SNF in AM
[2019-12-22 11:03] LABS: TOT PROT 6.7 g/dl (6.4-8.2)
--- NOTE | 2019-12-22 12:29 | PN ---
Progress Note, Physician History of Present Illness: Pt seen and examined at bedside. She is awake and appears comfortable. - Current Medication List Current Medications: Active Medications Acetaminophen (Tylenol -) 650 mg PO Q6H PRN PRN Reason: PAIN LEVEL 7 - 10 Calcium Carbonate (Calcium Carbonate -) 650 mg PO BID [facility] Last Admin: 12/22/19 10:23 Dose: 650 mg Documented by: Enoxaparin Sodium (Lovenox -) 40 mg SQ DAILY [facility] Last Admin: 12/22/19 10:22 Dose: 40 mg Documented by: Ceftriaxone Sodium 1 gm/ (Dextrose) 50 mls @ 100 mls/hr IVPB DAILY [facility] Last Admin: 12/22/19 10:23 Dose: 100 mls/hr Documented by: Magnesium Chloride (Slow-Mag -) 64 mg PO DAILY [facility] Last Admin: 12/22/19 10:22 Dose: 64 mg Documented by: Potassium Chloride (K-Dur -) 40 meq PO DAILY [facility] Last Admin: 12/22/19 10:23 Dose: 40 meq Documented by: Quetiapine Fumarate (Seroquel -) 25 mg PO BID [facility] Last Admin: 12/22/19 10:24 Dose: 25 mg Documented by: Tamsulosin HCl (Flomax -) 0.4 mg PO DAILY@0830 [facility] Last Admin: 12/22/19 10:23 Dose: 0.4 mg Documented by: - Objective Vital Signs: Vital Signs Temperature 98.4 F 12/22/19 06:45 Pulse Rate 67 12/22/19 06:45 Respiratory Rate 18 12/22/19 06:45 Blood Pressure 154/77 12/22/19 06:45 O2 Sat by Pulse Oximetry (%) 97 12/22/19 06:45 Constitutional: Yes: Calm Eyes: Yes: Conjunctiva Clear HENT: Yes: Atraumatic Neck: Yes: Supple Cardiovascular: Yes: S1, S2 Respiratory: Yes: CTA Bilaterally Gastrointestinal: Yes: Soft Genitourinary: Yes: Incontinence Musculoskeletal: Yes: Muscle Weakness Edema: No Neurological: Yes: Oriented Labs: CBC, BMP 12/20/19 06:50 12/22/19 08:22 Assessment/Plan Current Medications Generic Name Dose Route Start Last Admin Trade Name Freq PRN Reason Stop Dose Admin Acetaminophen 650 mg 12/18/19 05:34 Tylenol - PO Q6H PRN PAIN LEVEL 7 - 10 Calcium Carbonate 650 mg 12/19/19 11:45 12/22/19 10:23 Calcium Carbonate - PO 650 mg BID [facility] Administration Enoxaparin Sodium 40 mg 12/18/19 10:00 12/22/19 10:22 Lovenox - SQ 40 mg DAILY [facility] Administration Ceftriaxone Sodium 1 gm/ 50 mls @ 100 mls/hr 12/18/19 10:00 12/22/19 10:23 Dextrose IVPB 100 mls/hr DAILY [facility] Administration Magnesium Chloride 64 mg 12/20/19 13:30 12/22/19 10:22 Slow-Mag - PO 64 mg DAILY [facility] Administration Potassium Chloride 40 meq 12/20/19 13:00 12/22/19 10:23 K-Dur - PO 40 meq DAILY [facility] Administration Quetiapine Fumarate 25 mg 12/19/19 22:00 12/22/19 10:24 Seroquel - PO 25 mg BID [facility] Administration Tamsulosin HCl 0.4 mg 12/22/19 08:30 12/22/19 10:23 Flomax - PO 0.4 mg DAILY@0830 [facility] Administration 1. hypokalemia 2. Hypomagnesemia in setting of chronic PPI use 3. Cystitis 4. Parkinson's disease 5. Hypertension Plan - potassium stable - monitor lytes - repeat labs in am - diarrhea workup - check mag in am
--- NOTE | 2019-12-22 20:14 | PN ---
Progress Note (short form) - Note Progress Note: NEUROLOGY PROGRESS: Events reviewed and discussed with RN. Patient examined. Slept after quetiapine Monday but not last night. Tried to climb out of bed. Still confused "seeing things." Labs: Urine WBC= 49. On ceftriaxone Electrolytes stable EXAM: Neck supple. No external head trauma. Calmer. Recognizes me Ox [facility], Dec, 2019, [place]. Speech fluent, sparse CN II-XII normal Non-focal exam sig for mild cogwheel rigidity. IMP: Toxic-metabolic encephalopathy- improving Mild Parkinsons and underlying OMS SUGGEST: Increase quetiapine to 50 mg BID (PRN agitation and sleep) Observe off L-Dopa Mobilize OO Bed to chair, Kake with TV, Radio Thank you very much, Geremias Mac MD
[2019-12-22] MEDS ORDERED: PT OWN MED DRAWER 7, Y5N ONE (20:57)
[2019-12-22] MEDS: CEFUROXIME AXETIL 500 MG TABLET PO SCH (22:44)
--- NOTE | 2019-12-23 07:51 | DS ---
Physical Examination Vital Signs: Vital Signs Temperature 97.9 F 12/23/19 06:46 Pulse Rate 95 H 12/23/19 06:46 Respiratory Rate 20 12/23/19 06:46 Blood Pressure 153/78 12/23/19 06:46 O2 Sat by Pulse Oximetry (%) 97 12/23/19 06:46 Findings/Remarks: confused Constitutional: Yes: No Distress Cardiovascular: Yes: Regular Rate and Rhythm Respiratory: Yes: WNL Gastrointestinal: Yes: Soft Renal/: Yes: Nguyen Present Musculoskeletal: Yes: Muscle Weakness Neurological: Yes: Confusion Labs: CBC, BMP 12/20/19 06:50 12/22/19 08:22 Discharge Summary Problems reviewed: Yes Reason For Visit: URINARY TRACT INFECTION,WEAKNESSW,HYPOKALEMIA Current Active Problems AMS (altered mental status) (Acute) Acute metabolic encephalopathy (Acute) Hallucination (Acute) Hypokalemia (Acute) Hypomagnesemia (Acute) UTI (urinary tract infection) (Acute) Urinary retention (Acute) Weakness (Acute) Procedures: Principal: CT SCAN HEAD Hospital Course: ADMITTED TOXIC METABOLIC ENCEPHALOPATHY WITH UTI, TREATED WITH IV ABX AND NEUROLOGY WORKUP Plan of Treatment: HOLD SINEMET COMPLETE CEFUROXIME 5 DAYS SEROQUEL 50MG BID Condition: Improved - Instructions Diet, Activity, Other Instructions: HOLD SINEMET SEROQUEL 50MG BID CEFUROXIME BID 5 DAYS SEE NEUROLOGY OUTPATIENT AFTER SNF PLACEMENT Referrals: Carlos Loomis MD [Primary Care Provider] - Disposition: [facility] - Home Medications Comprehensive Discharge Medication List: Ambulatory Orders Atorvastatin Calcium [Lipitor] 20 mg PO DAILY 03/10/12 Ferrous Sulfate [Iron] 325 mg PO TID 10/22/18 Mirabegron [Myrbetriq] 25 mg PO DAILY 10/22/18 Nebivolol HCl [Bystolic] 10 mg PO DAILY 10/22/18 Pantoprazole Sodium [Protonix] 40 mg PO BID 10/22/18 Methocarbamol [Robaxin -] 1,500 mg PO QID 2 Days #8 tablet 01/07/19 Acetaminophen [Tylenol .Regular Strength -] 650 mg PO Q6H PRN tablet 12/23/19 Calcium Carbonate - 650 mg PO BID tablet 12/23/19 Cefuroxime Axetil [Ceftin -] 500 mg PO BID 5 Days #10 tablet 12/23/19 Enoxaparin [Lovenox -] 40 mg SQ DAILY disp.syrin 12/23/19 Magnesium Chloride [Slow-Mag -] 64 mg PO DAILY tablet.sa 12/23/19 Potassium Chloride [K-Dur -] 40 meq PO DAILY tablet.er 12/23/19 Quetiapine Fumarate [Seroquel -] 50 mg PO BID tablet 12/23/19 Tamsulosin HCl [Flomax -] 0.4 mg PO DAILY@0830 cap.er.24h 12/23/19 Prescription Drug Monitoring Program (I-STOP) results: I-STOP not reviewed
[2019-12-23] MEDS ORDERED: PT OWN MED DRAWER 7, Y5N ONE (09:16)
[2019-12-23] MEDS: ENOXAPARIN NA (PORCINE) 40 MG/0.4 ML DISP.SYRIN SQ SCH (09:19)
[2019-12-23] MEDS: TAMSULOSIN HCL 0.4 MG CAP PO SCH (09:20)
[2019-12-23] MEDS: MAGNESIUM CL 64 MG TABLET.SA PO SCH (09:20)
[2019-12-23] MEDS: QUEtiapine FUMARATE 25 MG TABLET PO SCH (09:20)
[2019-12-23] MEDS: CEFUROXIME AXETIL 500 MG TABLET PO SCH (09:20)
[2019-12-23] MEDS: POTASSIUM CHLORIDE TABS 20 MEQ TABLET.ER (FP) PO SCH (09:20)
[2019-12-23] MEDS: CALCIUM CARBONATE 650 MG TABLET PO SCH (09:20)
[2019-12-23 11:46] VITALS: BP 127/65; PULSE 75; TEMP 96.7
--- NOTE | 2019-12-23 11:46 | PN ---
Progress Note, Physician History of Present Illness: Seen and examined at the bedside has no acute complaints denies any sob, cp, fever, chills or abdominal pain making urine. tolerating oral diet. - Current Medication List Current Medications: Active Medications Acetaminophen (Tylenol -) 650 mg PO Q6H PRN PRN Reason: PAIN LEVEL 7 - 10 Calcium Carbonate (Calcium Carbonate -) 650 mg PO BID [facility] [place] Last Admin: 12/23/19 09:20 Dose: 650 mg Documented by: Cefuroxime Axetil (Ceftin -) 500 mg PO BID [facility] Last Admin: 12/23/19 09:20 Dose: 500 mg Documented by: Enoxaparin Sodium (Lovenox -) 40 mg SQ DAILY [facility] Last Admin: 12/23/19 09:19 Dose: 40 mg Documented by: Magnesium Chloride (Slow-Mag -) 64 mg PO DAILY [facility] [place] Last Admin: 12/23/19 09:20 Dose: 64 mg Documented by: Potassium Chloride (K-Dur -) 40 meq PO DAILY [facility] [place] Last Admin: 12/23/19 09:20 Dose: 40 meq Documented by: Quetiapine Fumarate (Seroquel -) 50 mg PO BID [facility] Last Admin: 12/23/19 09:20 Dose: 50 mg Documented by: Tamsulosin HCl (Flomax -) 0.4 mg PO DAILY@0830 [facility] Last Admin: 12/23/19 09:20 Dose: 0.4 mg Documented by: - Objective Vital Signs: Vital Signs Temperature 97.9 F 12/23/19 06:46 Pulse Rate 95 H 12/23/19 06:46 Respiratory Rate 20 12/23/19 06:46 Blood Pressure 153/78 12/23/19 06:46 O2 Sat by Pulse Oximetry (%) 97 12/23/19 06:46 Constitutional: Yes: No Distress, Calm Eyes: Yes: Conjunctiva Clear HENT: Yes: Atraumatic Neck: Yes: Supple Cardiovascular: Yes: Regular Rate and Rhythm Respiratory: Yes: Regular, CTA Bilaterally Gastrointestinal: Yes: Soft. No: Tenderness Extremities: No: Cold, Cool, Cyanosis Edema: No Neurological: Yes: Alert Labs: CBC, BMP 12/20/19 06:50 12/22/19 08:22 Assessment/Plan 89 year old woman with history of parkinson's disease, hypertension and hyperlipidemia who presented to the ED with pelvic and leg pain and found to have cystitis with hypokalemia and hypomagnesemia. 1. Persistent hypokalemia in setting of hypomagnesemia and possible diarrhea 2. Hypomagnsesemia in setting of chronic PPI use 3. Cystitis 4. Parkinson's disease 5. Hypertension Potassium is improved and stable. Continue oral KCL 40meq daily Continue Slo-mg daily as well Trend renal function and electrolytes daily while inpatient discharge planning as per primary team. Nicholas Thomas DO
--- NOTE | 2019-12-24 14:07 | EKG ---
Test Reason : Blood Pressure : / mmHG Vent. 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
== END 2019-12-23 15:45 | DRG 689 ==
LOC: JER 16:54 → JERBED 12-18 02:16 → J6S 12-18 18:25
PROVIDERS: ADMIT Hospitalist; ATTEND Family Medicine
DX: N39.0 Urinary tract infection, site not specified (principal); G93.41 Metabolic encephalopathy; Z68.1 Body mass index [BMI] 19.9 or less, adult; R64 Cachexia; G20 Parkinson's disease; E87.6 Hypokalemia; E83.42 Hypomagnesemia; E83.51 Hypocalcemia; E87.8 Other disorders of electrolyte and fluid balance, not elsewhere classified; I10 Essential (primary) hypertension; F29 Unspecified psychosis not due to a substance or known physiological condition; E78.5 Hyperlipidemia, unspecified
CPT/HCPCS: 36415; 70450-TC; 76856-TC; 80048; 80053; 81003; 82247; 82248; 82607; 83735; 84100; 84443; 84484; 85025; 85027; 86780; 87086; 87186; 93005; 93010; 97116-GP; 97162-GP; 99285-25; J0131; U0003

== ENCOUNTER 2020-05-08 14:36 | Inpatient (IN) | payer OTHER, BC ==
[2020-05-08 15:44] LABS: BASO % 0.7 % (0-2.0); EOS % 0.3 % (0-4.5); HEMATOCRIT 38.8 % (32.4-45.2); HEMOGLOBIN 12.7 GM/dL (10.7-15.3); LYMPH % 4.5 % (8-40); MCH 29.8 pg (25.7-33.7); MCHC 32.8 g/dl (32.0-36.0); MEAN CELL VOLUME 90.8 fl (80-96); MEAN PLT VOLUME 8.1 fl (7.5-11.1); MONO % 5.9 % (3.8-10.2); NEUT % 88.6 % (42.8-82.8); PLATELET COUNT 264 K/MM3 (134-434); RBC 4.28 M/mm3 (3.60-5.2); RDW 14.6 % (11.6-15.6); WHITE BLOOD COUNT 16.7 K/mm3 (4.0-10.0)
[2020-05-08 16:05] LABS: POTASSIUM 4.2 mmol/L (3.5-5.1)
[2020-05-08 16:08] LABS: CALCIUM 9.2 mg/dL (8.5-10.1)
[2020-05-08 16:09] LABS: BLOOD UREA NITROGEN 12.7 mg/dL (7-18); MAGNESIUM 1.1 mg/dL (1.8-2.4)
[2020-05-08 16:12] LABS: CREATININE 0.8 mg/dL (0.55-1.3)
[2020-05-08 16:13] LABS: BILIRUBIN,TOTAL 1.2 mg/dL (0.2-1); TOT PROT 6.5 g/dl (6.4-8.2)
[2020-05-08] MEDS ORDERED: MAGNESIUM SULF 50% (8.12 MEQ/2 ML-1 GM VIAL) IVPB ONE (16:34)
[2020-05-08] MEDS ORDERED: MAGNESIUM SULFATE IN WATER 2 GM/50 ML IVPB IVPB ONE (17:08)
[2020-05-08 17:17] LABS: EPI CELLS 5 /uL (0-25.1); HYALINE CASTS 11 /uL (0-3.1); URINE APPEARANCE CLOUDY; URINE BACTERIA 3700 /uL (0-1359); URINE BILIRUBIN NEGATIVE (NEGATIVE); URINE COLOR YELLOW; URINE GLUCOSE (UA) NEGATIVE (NEGATIVE); URINE KETONE NEGATIVE (NEGATIVE); URINE LEUK ESTERASE 3+ (NEGATIVE); URINE NITRITE POSITIVE (NEGATIVE); URINE PROTEIN TRACE (NEGATIVE); URINE RBC 34 /uL (0-23.9); URINE WBC 2096 /uL (0-25.8)
[2020-05-08] MEDS ORDERED: CEFTRIAXONE 1 GM/50 ML BAG ONE (17:54)
[2020-05-08 17:58] LABS: YEAST NONE SEEN (NEGATIVE)
[2020-05-08] MEDS ORDERED: ACETAMINOPHEN 325 MG TABLET (FP) PO PRN (18:15)
[2020-05-08] MEDS ORDERED: SODIUM CHLORIDE 1,000 ML IV STA (18:17)
[2020-05-08] MEDS ORDERED: METHOCARBAMOL 750 MG TABLET PO SCH (22:00)
[2020-05-08] MEDS ORDERED: SODIUM CHLORIDE 500 ML IV STA (22:36)
[2020-05-08] MEDS: QUEtiapine FUMARATE 25 MG TABLET PO SCH (22:49)
[2020-05-08] MEDS: PANTOPRAZOLE 40 MG TABLET PO SCH (22:49)
[2020-05-08] MEDS: METHOCARBAMOL 500 MG TABLET PO SCH (23:03)
[2020-05-09] MEDS: TAMSULOSIN HCL 0.4 MG CAP PO SCH (09:49)
[2020-05-09] MEDS: QUEtiapine FUMARATE 25 MG TABLET PO SCH ×2 (09:49→21:16)
[2020-05-09] MEDS: METHOCARBAMOL 500 MG TABLET PO SCH ×4 (09:49→21:16)
[2020-05-09] MEDS: POTASSIUM CHLORIDE TABS 20 MEQ TABLET.ER (FP) PO SCH (09:49)
[2020-05-09] MEDS: PANTOPRAZOLE 40 MG TABLET PO SCH ×2 (09:49→21:16)
[2020-05-09] MEDS: CEFTRIAXONE 1 GM in DEXTROSE 5%-WATER - 50 ML IVPB SCH ×3 (09:50→10:20)
[2020-05-09] MEDS: ENOXAPARIN NA (PORCINE) 40 MG/0.4 ML DISP.SYRIN SQ SCH (09:50)
[2020-05-09] MEDS ORDERED: PATIENT'S OWN MEDICATION (NON-FORMULARY) (Mirabegron [Myrbetriq] 25 MG Tab.Er.24h) PO SCH (10:00)
[2020-05-09] MEDS ORDERED: CEFTRIAXONE 1 GM in DEXTROSE 5%-WATER - 50 ML IVPB SCH (10:06)
[2020-05-09] MEDS ORDERED: cefTRIAXone SODIUM 1 GM VIAL ONE (10:13)
[2020-05-09] MEDS ORDERED: DEXTROSE 5%-WATER - 50 ML IVPB ONE (10:13)
[2020-05-09] MEDS: NEBIVOLOL 10 MG TABLET (FP) PO SCH (10:20)
[2020-05-09] MEDS: MAGNESIUM CL 64 MG TABLET.SA PO SCH (10:20)
[2020-05-09 12:33] LABS: BASO % 0.3 % (0-2.0); EOS % 1.1 % (0-4.5); HEMATOCRIT 34.2 % (32.4-45.2); HEMOGLOBIN 11.4 GM/dL (10.7-15.3); LYMPH % 5.2 % (8-40); MCH 30.1 pg (25.7-33.7); MCHC 33.3 g/dl (32.0-36.0); MEAN CELL VOLUME 90.5 fl (80-96); MEAN PLT VOLUME 7.8 fl (7.5-11.1); MONO % 4.8 % (3.8-10.2); NEUT % 88.6 % (42.8-82.8); PLATELET COUNT 231 K/MM3 (134-434); RBC 3.78 M/mm3 (3.60-5.2); RDW 14.6 % (11.6-15.6); WHITE BLOOD COUNT 14.9 K/mm3 (4.0-10.0)
[2020-05-09 13:01] LABS: POTASSIUM 4.1 mmol/L (3.5-5.1)
[2020-05-09 13:03] LABS: BLOOD UREA NITROGEN 10.5 mg/dL (7-18); CALCIUM 8.4 mg/dL (8.5-10.1)
[2020-05-09 13:07] LABS: CREATININE 0.9 mg/dL (0.55-1.3)
[2020-05-09] MEDS: ATORVASTATIN CA 20 MG TABLET (FP) PO SCH (21:26)
[2020-05-10] MEDS ORDERED: cefTRIAXone SODIUM 1 GM VIAL ONE (09:13)
[2020-05-10] MEDS ORDERED: DEXTROSE 5%-WATER - 50 ML IVPB ONE (09:13)
[2020-05-10] MEDS: QUEtiapine FUMARATE 25 MG TABLET PO SCH ×2 (09:36→21:13)
[2020-05-10] MEDS: POTASSIUM CHLORIDE TABS 20 MEQ TABLET.ER (FP) PO SCH (09:36)
[2020-05-10] MEDS: ENOXAPARIN NA (PORCINE) 40 MG/0.4 ML DISP.SYRIN SQ SCH (09:36)
[2020-05-10] MEDS: PANTOPRAZOLE 40 MG TABLET PO SCH ×2 (09:37→21:13)
[2020-05-10] MEDS: MAGNESIUM CL 64 MG TABLET.SA PO SCH (09:37)
[2020-05-10] MEDS: MULTIVITAMINS (DAILY MVI) TABLET (FP) PO SCH (09:37)
[2020-05-10] MEDS: NEBIVOLOL 10 MG TABLET (FP) PO SCH (09:37)
[2020-05-10] MEDS: METHOCARBAMOL 500 MG TABLET PO SCH ×4 (09:37→21:13)
[2020-05-10] MEDS: TAMSULOSIN HCL 0.4 MG CAP PO SCH (09:37)
[2020-05-10] MEDS: CEFTRIAXONE 1 GM in DEXTROSE 5%-WATER - 50 ML IVPB SCH (09:38)
[2020-05-10] MEDS: ATORVASTATIN CA 20 MG TABLET (FP) PO SCH (21:13)
[2020-05-10] MEDS: VANCOMYCIN 1 GRAM (PRE-DOCKED) 1,000 MG/250 ML BAG IVPB SCH (23:33)
[2020-05-11] MEDS ORDERED: cefTRIAXone SODIUM 1 GM VIAL ONE (09:38)
[2020-05-11] MEDS ORDERED: DEXTROSE 5%-WATER - 50 ML IVPB ONE (09:39)
[2020-05-11] MEDS: MULTIVITAMINS (DAILY MVI) TABLET (FP) PO SCH (10:50)
[2020-05-11] MEDS: POTASSIUM CHLORIDE TABS 20 MEQ TABLET.ER (FP) PO SCH (10:50)
[2020-05-11] MEDS: TAMSULOSIN HCL 0.4 MG CAP PO SCH (10:50)
[2020-05-11] MEDS: PANTOPRAZOLE 40 MG TABLET PO SCH ×2 (10:50→22:08)
[2020-05-11] MEDS: CEFTRIAXONE 1 GM in DEXTROSE 5%-WATER - 50 ML IVPB SCH (10:50)
[2020-05-11] MEDS: ENOXAPARIN NA (PORCINE) 40 MG/0.4 ML DISP.SYRIN SQ SCH (10:50)
[2020-05-11] MEDS: QUEtiapine FUMARATE 25 MG TABLET PO SCH ×2 (10:51→22:08)
[2020-05-11] MEDS: NEBIVOLOL 10 MG TABLET (FP) PO SCH (10:51)
[2020-05-11] MEDS: MAGNESIUM CL 64 MG TABLET.SA PO SCH (10:52)
[2020-05-11] MEDS: METHOCARBAMOL 500 MG TABLET PO SCH ×4 (10:57→22:09)
[2020-05-11 11:25] LABS: BASO % 0.5 % (0-2.0); EOS % 4.5 % (0-4.5); HEMATOCRIT 39.1 % (32.4-45.2); LYMPH % 13.5 % (8-40); MCH 30.2 pg (25.7-33.7); MCHC 33.1 g/dl (32.0-36.0); MEAN CELL VOLUME 91.1 fl (80-96); MEAN PLT VOLUME 8.4 fl (7.5-11.1); MONO % 6.2 % (3.8-10.2); NEUT % 75.3 % (42.8-82.8); PLATELET COUNT 254 K/MM3 (134-434); RBC 4.29 M/mm3 (3.60-5.2); WHITE BLOOD COUNT 8.9 K/mm3 (4.0-10.0)
[2020-05-11 12:03] LABS: ALBUMIN 2.6 g/dl (3.4-5.0); BILIRUBIN,TOTAL 0.5 mg/dL (0.2-1); CALCIUM 9.1 mg/dL (8.5-10.1); CREATININE 0.8 mg/dL (0.55-1.3); POTASSIUM 4.5 mmol/L (3.5-5.1); TOT PROT 6.3 g/dl (6.4-8.2)
[2020-05-11 13:12] LABS: PLATELET ESTIMATE NORMAL
[2020-05-11] MEDS: ATORVASTATIN CA 20 MG TABLET (FP) PO SCH (22:08)
[2020-05-11] MEDS: VANCOMYCIN 1 GRAM (PRE-DOCKED) 1,000 MG/250 ML BAG IVPB SCH (22:45)
[2020-05-12] MEDS ORDERED: ACETAMINOPHEN 325 MG TABLET (FP) ONE (09:59)
[2020-05-12] MEDS ORDERED: cefTRIAXone SODIUM 1 GM VIAL ONE (10:00)
[2020-05-12] MEDS ORDERED: DEXTROSE 5%-WATER - 50 ML IVPB ONE (10:00)
[2020-05-12] MEDS: NEBIVOLOL 10 MG TABLET (FP) PO SCH (10:55)
[2020-05-12] MEDS: QUEtiapine FUMARATE 25 MG TABLET PO SCH ×2 (10:55→22:26)
[2020-05-12] MEDS: METHOCARBAMOL 500 MG TABLET PO SCH ×3 (10:55→17:18)
[2020-05-12] MEDS: PANTOPRAZOLE 40 MG TABLET PO SCH ×2 (10:55→22:27)
[2020-05-12] MEDS: POTASSIUM CHLORIDE TABS 20 MEQ TABLET.ER (FP) PO SCH (10:55)
[2020-05-12] MEDS: MULTIVITAMINS (DAILY MVI) TABLET (FP) PO SCH (10:55)
[2020-05-12] MEDS: ENOXAPARIN NA (PORCINE) 40 MG/0.4 ML DISP.SYRIN SQ SCH (10:56)
[2020-05-12] MEDS: TAMSULOSIN HCL 0.4 MG CAP PO SCH (10:56)
[2020-05-12] MEDS: MAGNESIUM CL 64 MG TABLET.SA PO SCH (10:56)
[2020-05-12] MEDS: CEFTRIAXONE 1 GM in DEXTROSE 5%-WATER - 50 ML IVPB SCH (10:56)
[2020-05-12] MEDS ORDERED: ALBUTEROL SO4 2.5/IPRATROPIUM 0.5 INH SOL 3 ML VIAL.NEB. NEB PRN (13:19)
[2020-05-12] MEDS: ATORVASTATIN CA 20 MG TABLET (FP) PO SCH (22:26)
[2020-05-12] MEDS: VANCOMYCIN 1 GRAM (PRE-DOCKED) 1,000 MG/250 ML BAG IVPB SCH (22:27)
[2020-05-13] MEDS: QUEtiapine FUMARATE 25 MG TABLET PO SCH ×2 (08:51→22:05)
[2020-05-13] MEDS ORDERED: DEXTROSE 5%-WATER - 50 ML IVPB ONE (09:28)
[2020-05-13] MEDS ORDERED: cefTRIAXone SODIUM 1 GM VIAL ONE ×2 (09:28→18:22)
[2020-05-13] MEDS: ENOXAPARIN NA (PORCINE) 40 MG/0.4 ML DISP.SYRIN SQ SCH (10:01)
[2020-05-13] MEDS: POTASSIUM CHLORIDE TABS 20 MEQ TABLET.ER (FP) PO SCH (10:01)
[2020-05-13] MEDS: MAGNESIUM CL 64 MG TABLET.SA PO SCH (10:01)
[2020-05-13] MEDS: PANTOPRAZOLE 40 MG TABLET PO SCH ×2 (10:02→22:05)
[2020-05-13] MEDS: NEBIVOLOL 10 MG TABLET (FP) PO SCH (10:02)
[2020-05-13] MEDS: TAMSULOSIN HCL 0.4 MG CAP PO SCH (10:02)
[2020-05-13] MEDS: MULTIVITAMINS (DAILY MVI) TABLET (FP) PO SCH (10:02)
[2020-05-13] MEDS: CEFTRIAXONE 1 GM in DEXTROSE 5%-WATER - 50 ML IVPB SCH (10:03)
[2020-05-13] MEDS: ATORVASTATIN CA 20 MG TABLET (FP) PO SCH (22:05)
[2020-05-14] MEDS: VANCOMYCIN 1 GRAM (PRE-DOCKED) 1,000 MG/250 ML BAG IVPB SCH (00:05)
[2020-05-14] MEDS ORDERED: DEXTROSE 5%-WATER - 50 ML IVPB ONE (08:58)
[2020-05-14] MEDS ORDERED: cefTRIAXone SODIUM 1 GM VIAL ONE (08:58)
[2020-05-14] MEDS ORDERED: PT OWN MED DRAWER 7, Y5N ONE ×2 (09:00→12:19)
[2020-05-14] MEDS: MULTIVITAMINS (DAILY MVI) TABLET (FP) PO SCH (09:22)
[2020-05-14] MEDS: POTASSIUM CHLORIDE TABS 20 MEQ TABLET.ER (FP) PO SCH (09:23)
[2020-05-14] MEDS: PANTOPRAZOLE 40 MG TABLET PO SCH ×2 (09:24→21:30)
[2020-05-14] MEDS: NEBIVOLOL 10 MG TABLET (FP) PO SCH (09:24)
[2020-05-14] MEDS: ENOXAPARIN NA (PORCINE) 40 MG/0.4 ML DISP.SYRIN SQ SCH (09:24)
[2020-05-14] MEDS: MAGNESIUM CL 64 MG TABLET.SA PO SCH (09:25)
[2020-05-14] MEDS: CEFTRIAXONE 1 GM in DEXTROSE 5%-WATER - 50 ML IVPB SCH (09:36)
[2020-05-14] MEDS: TAMSULOSIN HCL 0.4 MG CAP PO SCH (10:13)
[2020-05-14 15:12] LABS: BASO % 0.9 % (0-2.0); EOS % 5.6 % (0-4.5); HEMATOCRIT 38.2 % (32.4-45.2); HEMOGLOBIN 12.8 GM/dL (10.7-15.3); LYMPH % 15.4 % (8-40); MCH 30.3 pg (25.7-33.7); MCHC 33.6 g/dl (32.0-36.0); MEAN CELL VOLUME 90.1 fl (80-96); MEAN PLT VOLUME 7.6 fl (7.5-11.1); MONO % 8.1 % (3.8-10.2); PLATELET COUNT 340 K/MM3 (134-434); RBC 4.23 M/mm3 (3.60-5.2); WHITE BLOOD COUNT 8.8 K/mm3 (4.0-10.0)
[2020-05-14 15:45] LABS: ALBUMIN 2.6 g/dl (3.4-5.0); BLOOD UREA NITROGEN 21.2 mg/dL (7-18); CALCIUM 9.3 mg/dL (8.5-10.1)
[2020-05-14 15:48] LABS: CREATININE 0.9 mg/dL (0.55-1.3)
[2020-05-14 15:50] LABS: BILIRUBIN,TOTAL 0.3 mg/dL (0.2-1); TOT PROT 6.3 g/dl (6.4-8.2)
[2020-05-14] MEDS: QUEtiapine FUMARATE 25 MG TABLET PO SCH (21:30)
[2020-05-14] MEDS: ATORVASTATIN CA 20 MG TABLET (FP) PO SCH (21:30)
[2020-05-15 08:20] LABS: BASO % 0.8 % (0-2.0); EOS % 3.8 % (0-4.5); HEMATOCRIT 40.2 % (32.4-45.2); HEMOGLOBIN 13.3 GM/dL (10.7-15.3); LYMPH % 13.3 % (8-40); MCH 30.1 pg (25.7-33.7); MCHC 33.1 g/dl (32.0-36.0); MEAN CELL VOLUME 90.9 fl (80-96); NEUT % 75.1 % (42.8-82.8); PLATELET COUNT 344 K/MM3 (134-434); RBC 4.43 M/mm3 (3.60-5.2); RDW 14.9 % (11.6-15.6); WHITE BLOOD COUNT 9.9 K/mm3 (4.0-10.0)
[2020-05-15 08:40] LABS: POTASSIUM 4.6 mmol/L (3.5-5.1)
[2020-05-15 08:45] LABS: CALCIUM 9.7 mg/dL (8.5-10.1)
[2020-05-15 08:46] LABS: ALBUMIN 2.9 g/dl (3.4-5.0); BLOOD UREA NITROGEN 23.5 mg/dL (7-18)
[2020-05-15 08:48] LABS: CREATININE 0.9 mg/dL (0.55-1.3)
[2020-05-15 08:50] LABS: BILIRUBIN,TOTAL 0.3 mg/dL (0.2-1); TOT PROT 6.8 g/dl (6.4-8.2)
[2020-05-15] MEDS: NEBIVOLOL 10 MG TABLET (FP) PO SCH (09:24)
[2020-05-15] MEDS: MULTIVITAMINS (DAILY MVI) TABLET (FP) PO SCH (09:34)
[2020-05-15] MEDS: MAGNESIUM CL 64 MG TABLET.SA PO SCH (09:34)
[2020-05-15] MEDS: TAMSULOSIN HCL 0.4 MG CAP PO SCH (09:34)
[2020-05-15] MEDS: POTASSIUM CHLORIDE TABS 20 MEQ TABLET.ER (FP) PO SCH (09:35)
[2020-05-15] MEDS: ENOXAPARIN NA (PORCINE) 40 MG/0.4 ML DISP.SYRIN SQ SCH (09:35)
[2020-05-15] MEDS: PANTOPRAZOLE 40 MG TABLET PO SCH ×2 (09:35→21:00)
[2020-05-15] MEDS ORDERED: cefTRIAXone SODIUM 1 GM VIAL ONE (09:38)
[2020-05-15] MEDS ORDERED: DEXTROSE 5%-WATER - 50 ML IVPB ONE (09:39)
[2020-05-15] MEDS: CEFTRIAXONE 1 GM in DEXTROSE 5%-WATER - 50 ML IVPB SCH (09:41)
[2020-05-15] MEDS: QUEtiapine FUMARATE 25 MG TABLET PO SCH (21:00)
[2020-05-15] MEDS: ATORVASTATIN CA 20 MG TABLET (FP) PO SCH (21:00)
[2020-05-15] MEDS: AMOX TR/POTASSIUM CLAVULANATE 600 MG/5 ML PO SCH (21:02)
[2020-05-16] MEDS ORDERED: MELATONIN 5 MG TABLETS PO ONE (02:06)
[2020-05-16] MEDS ORDERED: QUEtiapine FUMARATE 25 MG TABLET PO ONE (06:04)
[2020-05-16] MEDS ORDERED: PT OWN MED DRAWER 7, Y5N ONE ×2 (09:28→09:29)
[2020-05-16] MEDS: POTASSIUM CHLORIDE TABS 20 MEQ TABLET.ER (FP) PO SCH (12:08)
[2020-05-16] MEDS: TAMSULOSIN HCL 0.4 MG CAP PO SCH (12:08)
[2020-05-16] MEDS: ENOXAPARIN NA (PORCINE) 40 MG/0.4 ML DISP.SYRIN SQ SCH (12:10)
[2020-05-16] MEDS: PANTOPRAZOLE 40 MG TABLET PO SCH ×2 (12:10→21:27)
[2020-05-16] MEDS: MULTIVITAMINS (DAILY MVI) TABLET (FP) PO SCH (12:10)
[2020-05-16] MEDS: MAGNESIUM CL 64 MG TABLET.SA PO SCH (14:17)
[2020-05-16] MEDS: NEBIVOLOL 10 MG TABLET (FP) PO SCH ×2 (14:18→14:27)
[2020-05-16] MEDS: AMOX TR/POTASSIUM CLAVULANATE 600 MG/5 ML PO SCH ×2 (14:20→18:40)
[2020-05-16] MEDS ORDERED: hydrALAZINE HCL 10 MG TABLET PO ONE (18:07)
[2020-05-16] MEDS: ATORVASTATIN CA 20 MG TABLET (FP) PO SCH (21:27)
[2020-05-16] MEDS: QUEtiapine FUMARATE 25 MG TABLET PO SCH (21:27)
[2020-05-17] MEDS ORDERED: PT OWN MED DRAWER 7, Y5N ONE ×2 (09:50→13:57)
[2020-05-17] MEDS ORDERED: RAMIPRIL 5 MG CAPSULE PO SCH (10:00)
[2020-05-17] MEDS: POTASSIUM CHLORIDE TABS 20 MEQ TABLET.ER (FP) PO SCH (11:05)
[2020-05-17] MEDS: NEBIVOLOL 10 MG TABLET (FP) PO SCH (11:05)
[2020-05-17] MEDS: MULTIVITAMINS (DAILY MVI) TABLET (FP) PO SCH (11:06)
[2020-05-17] MEDS: PANTOPRAZOLE 40 MG TABLET PO SCH (11:06)
[2020-05-17] MEDS: MAGNESIUM CL 64 MG TABLET.SA PO SCH (11:06)
[2020-05-17] MEDS: TAMSULOSIN HCL 0.4 MG CAP PO SCH (11:06)
[2020-05-17] MEDS: ENOXAPARIN NA (PORCINE) 40 MG/0.4 ML DISP.SYRIN SQ SCH (11:06)
[2020-05-17] MEDS: AMOX TR/POTASSIUM CLAVULANATE 600 MG/5 ML PO SCH (11:59)
[2020-05-17 13:37] VITALS: BP 141/69; PULSE 67; TEMP 97.8
== END 2020-05-17 16:53 | DRG 689 ==
LOC: JER 14:36 → JERBED 17:20 → J7W 21:31
PROVIDERS: ADMIT Internal Medicine; ATTEND Family Medicine
DX: N39.0 Urinary tract infection, site not specified (principal); G93.41 Metabolic encephalopathy; L02.31 Cutaneous abscess of buttock; L03.818 Cellulitis of other sites; I10 Essential (primary) hypertension; G20 Parkinson's disease; E87.6 Hypokalemia; E83.42 Hypomagnesemia; N39.490 Overflow incontinence; R91.8 Other nonspecific abnormal finding of lung field; R44.1 Visual hallucinations; R41.82 Altered mental status, unspecified; E78.5 Hyperlipidemia, unspecified; R10.13 Epigastric pain; L08.9 Local infection of the skin and subcutaneous tissue, unspecified; D64.9 Anemia, unspecified; D72.829 Elevated white blood cell count, unspecified; F02.80 Dementia in other diseases classified elsewhere, unspecified severity, without behavioral disturbance, psychotic disturbance, mood disturbance, and anxiety; R53.1 Weakness; B95.61 Methicillin susceptible Staphylococcus aureus infection as the cause of diseases classified elsewhere
CPT/HCPCS: 36415; 70450-TC; 71045-TC-FY; 71250-TC; 74176-TC; 80048; 80053; 81003; 82607; 82728; 82962; 83605; 83615; 83690; 83735; 84443; 85025; 85379; 86140; 86769; 86780; 87040; 87086; 87186; 93005; 93010; 97116-GP; 97161-GP; 99285-25; C9803; G0480; U0003